=== PATIENT | female | born 1955 | race Caucasian/White ===

== ENCOUNTER → 2017-12-10 10:49 | Outpatient (CLI) | payer OTHER, SELFPAY ==
[2017-12-10 12:01] LABS: Add Manual Diff / Slide Review NO; Basophils Percent Auto 0.3 % (0-2); Hemoglobin 12.6 g/dL (12.0-16.0); Lymphocytes Percent Auto 18.5 % (25-40); Mean Corpuscular Volume 85.2 fL (80-100); Monocytes Percent Auto 6.9 % (3-14); Neutrophils Absolute Auto 4500 /uL (3000-5900); Neutrophils Percent Auto 73.3 % (50-75); Platelet Count 253 X10^3/uL (150-400); Red Blood Cell Count 4.35 X10^6/uL (4.0-5.2); Red Cell Distribution Width 14.1 % (11.6-14.8); White Blood Cell Count 6.1 X10^3/uL (4.5-11.0)
[2017-12-10 12:27] LABS: Alanine Aminotransferase 71 IU/L (9-52); Albumin 4.2 g/dL (3.5-5.0); Albumin Globulin Ratio 1.7 (1.0-2.8); Alkaline Phosphatase 179 U/L (38-126); Aspartate Aminotransferase 29 IU/L (14-36); BUN Creatinine Ratio 21.3 (6-22); Bilirubin Total 0.5 mg/dL (0.2-1.3); Blood Urea Nitrogen 17 mg/dL (7-17); C-Reactive Protein Quant 1.5 mg/dL (<1.0); Calcium 9.5 mg/dL (8.4-10.2); Carbon Dioxide 27 mmol/L (22-32); Chloride 101 mmol/L (98-107); Cholesterol 205 mg/dL (140-199); Estimated Glomerular Filt Rate > 60.0 mL/min (>60); Globulin 2.5 g/dL (1.7-4.1); Glucose 136 mg/dL (80-110); HDL Cholesterol 71 mg/dL (40-60); HEMOLYSIS < 15 (0-50); LDL Cholesterol Calculated 96 mg/dL (<100); Potassium 4.8 mmol/L (3.4-5.1); Sodium 141 mmol/L (137-145); Total Protein 6.7 g/dL (6.3-8.2); Triglycerides 192 mg/dL (35-150)
[2017-12-10 12:28] LABS: Hemoglobin A1C% w Est Avg Glu 6.4 % (4.0-6.0); Lipase < 10 U/L (23-300)
[2017-12-10 12:32] LABS: High Sensitivity CRP - Cardiac 6.7 mg/L (1.0-3.0)
[2017-12-10 12:49] LABS: Thyroid Stimulating Hormone 0.63 uIU/mL (0.47-4.68)
== END ==
PROVIDERS: PCP Anesthesiology Pain Medicine; Visit Provider Anesthesiology Pain Medicine
DX: E13.42 Other specified diabetes mellitus with diabetic polyneuropathy (principal); Z79.891 Long term (current) use of opiate analgesic; I69.811 Memory deficit following other cerebrovascular disease; H53.8 Other visual disturbances; I15.0 Renovascular hypertension; M17.0 Bilateral primary osteoarthritis of knee; F33.1 Major depressive disorder, recurrent, moderate; Z13.220 Encounter for screening for lipoid disorders; Z13.228 Encounter for screening for other metabolic disorders
CPT/HCPCS: 36415; 80053; 80061; 83036; 83690; 84443; 85025; 86140

== ENCOUNTER 2018-08-09 08:51 | Day surgery (SDC) | payer OTHER, SELFPAY ==
[2018-08-02 14:37] VITALS: BMI 42.4
[2018-08-09] VITALS (8 sets, daily range): BP systolic 106–164; BP diastolic 64–83; PULSE 65–75; RESP 12–16; TEMP 36.2–36.4; O2SAT 96–98; BMI 41.0
[2018-08-09] MEDS: LACTATED RINGERS 1,000 ML 100 ML IV (09:44)
[2018-08-09] MEDS: CEFAZOLIN 2 GM/100 ML FROZ.PIGGY IV (11:01)
--- NOTE | 2018-08-09 11:13 | SUR.OPER ---
Lithotomy on padded OR bed, head on pillow, arms secured on padded arm boards at <90 degrees abduction. Legs secured in padded yellow fins stirrups.
[2018-08-09] MEDS: BUPIVACAINE 0.25% W/ EPI VIAL 50 ML INJ (11:22)
--- NOTE | 2018-08-09 12:14 | SUR.PHASEII ---
pt arrived to phase II via stretcher. Pt brought to bedside. Pt sitting up and talking to RN and . Iv site clear. Cuca-pad observed to be c/d/i. pt denies any pain/discomfort or nausea at this time. bed in lowest position and call light given to pt. pt appears comfortable at this time.
[2018-08-09] MEDS: OXYCODONE/ACETAMINOPHEN 5/325 TABLET 1 TAB PO (12:27)
--- NOTE | 2018-08-09 12:43 | SUR.PREOP ---
late entry blood sugar [address] coyle notified prior to start of case, no actions taken
--- NOTE | 2018-08-10 07:56 | PM.PREOP ---
Pre-operative Note Interval Note History & Physical reviewed/Exam performed by Physician: Yes Changes to H&P: No
--- NOTE | 2018-08-10 08:00 | P.HP_ITS ---
History of Present Illness Date Patient Seen: 08/09/18 Time Patient Seen: 10:15 Chief complaint: tvt revision [id number] Narrative: Patient is a 63 year who presents for a TVT revision Patient History Medical History Hypertension (Chronic) Insulin dependent diabetes mellitus (Chronic) Sick sinus syndrome (Chronic) Fibromyalgia syndrome (Chronic) Anxiety and depression (Chronic) Central sleep apnea (Chronic ~2006) Obstructive sleep apnea of adult (Chronic ~2006) Erosion of suburethral sling (Acute) First degree AV block (Acute) Morbid obesity (Acute) Surgical History History of bladder surgery (Acute) S/P laparoscopic supracervical hysterectomy (Acute) History of colonoscopy with polypectomy (Resolved 05/25/14) History of colonoscopy with polypectomy (Resolved 10/08/17) History of esophagogastroduodenoscopy (EGD) (Resolved 05/25/14) History of esophagogastroduodenoscopy (EGD) (Resolved 12/20/15) History of esophagogastroduodenoscopy (EGD) (Resolved 10/08/17) History of hysteroscopy (Resolved 10/10/09) History of lumbosacral spine surgery (Resolved 10/2012) History of neck surgery (Resolved 08/2012) Family & Social History Social History: household members spouse Tobacco & Substance use: Smoking Status Never smoker alcohol intake current Meds Home Medications Medication Instructions Recorded Confirmed Type [VANQUISH] #0 10/10/09 History gabapentin [Neurontin] 300 mg PO HS #0 03/14/17 08/09/18 History hyoscyamine sulfate 0.125 mg PO TIDP PRN #0 03/14/17 08/09/18 History insulin lispro [Humalog KwikPen 20 - 28 unit SQ TIDAC #0 03/14/17 08/09/18 History Insulin] lisinopril 20 mg PO QDAY #0 03/14/17 08/09/18 History metoprolol succinate [Toprol XL] 25 mg PO QDAY #0 03/14/17 08/09/18 History oxybutynin chloride 5 mg PO BID #0 03/14/17 08/09/18 History oxycodone 5 mg PO HSP PRN #0 03/14/17 08/09/18 History aspirin 81 mg PO QDAY #30 tab 03/17/17 08/09/18 Rx insulin detemir (U-100) 100 54 unit SUBCUT BID ml 04/21/18 08/09/18 History unit/mL (3 mL) subcutaneous pen Allergies Allergy/AdvReac Type Severity Reaction Status Date / Time erythromycin base Allergy Severe liver Verified 08/09/18 09:10 problems metformin Allergy Unknown pancreatiti Verified 08/09/18 09:11 s Exam Vital Signs (past 8 hours): Oxygen Delivery Method Room Air Narrative Exam Narrative: HEENT: No thyromegaly, no anterior cervical or supraclavicular lymphadenopathy. Lungs:Clear to auscultation bilaterally, no wheezes. Cardiovascular: Regular rate and rhythm, no murmurs, rubs, or gallops. Abdomen: Well-healed laparoscopy scars. No hepatosplenomegaly. No masses palpable. External genitalia: Atrophic Vagina: Atrophic. Small piece of TVT palpable in the midline approximately 1-1 /2 cm away from the urethral meatus. Cervix: Normal Bimanual exam: No masses or tenderness Rectal: No masses. Assessment & Plan (1) Erosion of suburethral sling: Current visit: No Status: Acute Plan: Assessment/Plan Narrative: Assessment: 63-year-old with erosion of the suburethral sling Plan: Revision of TVT The risks, benefits, and alternatives to the procedure were explained to the patient the risks including bleeding, infection, and injury to the urethra. She understands these risks and agrees to proceed. A full PAR-Q was held and consent form was signed.
--- NOTE | 2018-08-10 08:51 | P.OP_ITS ---
Operative Date/Time/Diagnoses Date of procedure: 08/09/18 Time of procedure: 11:45 Pre-op diagnosis: Erosion of suburethral sling Post-op diagnosis: same Procedure: Procedures Operation Date: 08/09/18 10:15 Actual Procedures Side Surgeon p Tensionless Vaginal Tape Revision Elisabeth Jones MD Indications: Erosion of suburethral sling into the vaginal mucosa Surgeon: Elisabeth Jones Anesthesia Type: General (LMA) Operative Notes Findings: 4 mm x 4 mm piece of suburethral sling visible and palpable in the midline on the anterior vaginal wall Closure Type: primary Specimen(s): none Estimated blood loss (mL): 3 Blood products transfused: none Procedure in detail: After informed consent was obtained, the patient was taken to the operating room where she was placed in the dorsal supine position after adequate LMA general anesthesia was achieved, she was placed in the dorsal lithotomy position, and prepped and draped in the usual sterile fashion. A time- out was performed. A weighted speculum was placed into the vagina. Allis clamps were placed to the lateral edges of the sling in the midline. 5 cc of 0.5 % Marcaine with epinephrine were injected submucosally. The vaginal mucosa surrounding the exposed TVT was excised with a # 15 blade. This was done approximately 3 mm circumferentially around the exposed sling. The mucosa was closed using 4 simple interrupted sutures with 3 0 Vicryl. Hemostasis was achieved. The Allis clamps were removed from the mucosa. The weighted speculum was removed from the vagina. A red rubber catheter was placed into the bladder and the urine was clear at the completion of case. Sponge, lap, and instrument counts were correct x2. The patient tolerated the procedure well , and was taken to PACU in stable condition. Complications: none Post-operative Condition: stable Disposition: PACU Plan for aftercare: Home after recovery
== END 2018-08-09 13:13 | disposition home or self-care (01) ==
PROVIDERS: Family Provider Anesthesiology Pain Medicine; PCP Anesthesiology Pain Medicine; Visit Provider Obstetrics & Gynecology
PROC: 0TSD0ZZ Reposition Urethra, Open Approach (ICD-10-PCS; CPT 57287; principal; 2018-08-09 10:15)
DX: T83.712A Erosion of implanted urethral mesh to surrounding organ or tissue, initial encounter (principal); N93.9 Abnormal uterine and vaginal bleeding, unspecified; I10 Essential (primary) hypertension; E11.9 Type 2 diabetes mellitus without complications; Z79.4 Long term (current) use of insulin; I49.5 Sick sinus syndrome; M79.7 Fibromyalgia; F41.9 Anxiety disorder, unspecified; F33.41 Major depressive disorder, recurrent, in partial remission; G47.31 Primary central sleep apnea; G47.33 Obstructive sleep apnea (adult) (pediatric); E66.01 Morbid (severe) obesity due to excess calories
CPT/HCPCS: 57287; J0690; J2405; J2704; J3010

== ENCOUNTER → 2018-11-12 13:43 | Outpatient (CLI) | payer OTHER, SELFPAY ==
[2018-11-12 15:46] LABS: BUN Creatinine Ratio 26.3 (6-22); Blood Urea Nitrogen 21 mg/dL (7-17); Calcium 9.5 mg/dL (8.4-10.2); Carbon Dioxide 24 mmol/L (22-32); Chloride 102 mmol/L (98-107); Estimated Glomerular Filt Rate > 60.0 mL/min (>60); Glucose 156 mg/dL (80-110); HEMOLYSIS < 15 (0-50); Potassium 4.5 mmol/L (3.4-5.1); Sodium 138 mmol/L (137-145)
== END ==
PROVIDERS: PCP Anesthesiology Pain Medicine; Visit Provider Nurse Practitioner
DX: E11.9 Type 2 diabetes mellitus without complications (principal); Z79.4 Long term (current) use of insulin
CPT/HCPCS: 36415; 80048

== ENCOUNTER → 2018-12-07 12:33 | Outpatient (CLI) | payer OTHER, SELFPAY ==
[2018-12-07 13:41] LABS: Add Manual Diff / Slide Review NO; Basophils Absolute Auto 0 /uL (0-100); Basophils Percent Auto 0.6 % (0-2); Eosinophils Absolute Auto 100 /uL (0-450); Eosinophils Percent Auto 2.1 % (2-4); Hemoglobin 13.7 g/dL (12.0-16.0); Lymphocytes Absolute Auto 1300 /uL (1100-4500); Lymphocytes Percent Auto 20.6 % (25-40); Mean Corpuscular HGB Conc 34.2 % (30-36); Mean Corpuscular Hemoglobin 29.4 PG (26-34); Mean Corpuscular Volume 86.1 fL (80-100); Monocytes Absolute Auto 500 /uL (0-900); Monocytes Percent Auto 7.5 % (3-14); Neutrophils Absolute Auto 4500 /uL (1500-7000); Neutrophils Percent Auto 69.2 % (50-75); Platelet Count 280 X10^3/uL (150-400); Red Blood Cell Count 4.65 X10^6/uL (4.0-5.2); Red Cell Distribution Width 13.9 % (11.6-14.8); White Blood Cell Count 6.4 X10^3/uL (4.5-11.0)
[2018-12-07 14:47] LABS: Alanine Aminotransferase 55 IU/L (9-52); Albumin 4.2 g/dL (3.5-5.0); Albumin Globulin Ratio 1.6 (1.0-2.8); Alkaline Phosphatase 197 U/L (38-126); Aspartate Aminotransferase 41 IU/L (14-36); BUN Creatinine Ratio 27.8 (6-22); Bilirubin Total 0.5 mg/dL (0.2-1.3); Blood Urea Nitrogen 25 mg/dL (7-17); Calcium 9.3 mg/dL (8.4-10.2); Carbon Dioxide 23 mmol/L (22-32); Chloride 103 mmol/L (98-107); Estimated Glomerular Filt Rate > 60.0 mL/min (>60); Globulin 2.7 g/dL (1.7-4.1); Glucose 160 mg/dL (80-110); HEMOLYSIS 15 (0-50); Potassium 4.4 mmol/L (3.4-5.1); Sodium 136 mmol/L (137-145); Total Protein 6.9 g/dL (6.3-8.2)
== END ==
PROVIDERS: PCP Anesthesiology Pain Medicine; Visit Provider Anesthesiology Pain Medicine
DX: E13.42 Other specified diabetes mellitus with diabetic polyneuropathy (principal); M96.1 Postlaminectomy syndrome, not elsewhere classified; I69.811 Memory deficit following other cerebrovascular disease; I15.0 Renovascular hypertension; Z13.21 Encounter for screening for nutritional disorder; Z13.220 Encounter for screening for lipoid disorders; F33.1 Major depressive disorder, recurrent, moderate
CPT/HCPCS: 36415; 80053; 85025

== ENCOUNTER → 2018-12-17 14:23 | Outpatient (CLI) | payer MEDICARE, OTHER, SELFPAY ==
--- NOTE | 2018-12-17 | DI.RAD.S_ITS ---
PROCEDURE: XR CHEST 2V INDICATIONS: COUGH/BRONCHITIS TECHNIQUE: 2 views of the chest were acquired. COMPARISON: [facility], , CHEST 1 VIEW, 03/15/2017, 6:02. FINDINGS: Surgical changes and devices: Cervical spine fixation hardware Lungs and pleura: Lungs are clear. No pleural effusions or pneumothorax. Mediastinum: Mediastinal contours are normal. Heart size is normal. Bones and chest wall: No suspicious bony abnormalities. Soft tissues appear unremarkable. IMPRESSION: No acute disease Dictated by: Prasanna Serna M.D. on 12/17/2018 at 14:55 Approved by: Prasanna Serna M.D. on 12/17/2018 at 14:55
== END ==
PROVIDERS: PCP Anesthesiology Pain Medicine; Visit Provider Anesthesiology Pain Medicine
DX: R05 Cough (principal); J40 Bronchitis, not specified as acute or chronic
CPT/HCPCS: 71046

== ENCOUNTER 2019-02-21 14:46 | Emergency (ER) | payer MEDICARE, OTHER, SELFPAY ==
[2019-02-21 14:53] VITALS: BP 161/76; PULSE 78; RESP 18; TEMP 36.7; O2SAT 100
--- NOTE | 2019-02-21 15:10 | DI.US.S_ITS ---
PROCEDURE: US ABDOMEN LIMITED INDICATIONS: UPPER ABDOMEN PAIN TECHNIQUE: Real-time focused scanning was performed of the abdomen, with image documentation. COMPARISON: None. FINDINGS: Limited study at clinician request. The liver is mildly enlarged at 18.9 cm craniocaudad. No intrahepatic mass or biliary distention is found. The gallbladder wall measures up to 3.1 mm, thickened. A nonvascular mass like structure is seen at the gallbladder fundus, measuring 13 x 11 x 6 mm. Bile duct measures 4.7 mm at the zak hepatis. This is normal. No gallstones seen. Limited visualization of the pancreas appears normal. IMPRESSION: Limited study at clinician request. Possible mass lesion gallbladder fundus measuring up to 13 x 11 x 6 mm with gallbladder wall thickening measuring up to 3.[address] scanning is recommended if cholecystectomy is not anticipated. Dictated by: Kenny Gordon M.D. on 02/21/2019 at 16:20 Approved by: Kenny Gordon M.D. on 02/21/2019 at 16:23
--- NOTE | 2019-02-21 15:10 | DI.RAD.S_ITS ---
PROCEDURE: XR CHEST 1V INDICATIONS: SOB, leg swelling TECHNIQUE: One view of the chest was acquired. COMPARISON: [facility], , XR CHEST 2V, 12/17/2018, 14:30. [facility], , CHEST 1 VIEW, 03/15/2017, 6:02. FINDINGS: Surgical changes and devices: None. Lungs and pleura: Lungs are clear. No pleural effusions or pneumothorax. Mediastinum: Mediastinal contours appear normal. Heart size is normal. Bones and chest wall: No suspicious bony lesions. Overlying soft tissues appear unremarkable. IMPRESSION: Normal for age, source of current shortness of breath symptoms is not seen. Dictated by: Kenny Gordon M.D. on 02/21/2019 at 16:19 Approved by: Kenny Gordon M.D. on 02/21/2019 at 16:20
[2019-02-21 15:31] LABS: Add Manual Diff / Slide Review NO; Basophils Absolute Auto 100 /uL (0-100); Basophils Percent Auto 0.7 % (0-2); Eosinophils Absolute Auto 100 /uL (0-450); Eosinophils Percent Auto 0.7 % (2-4); Hematocrit 40.6 % (36-46); Hemoglobin 13.4 g/dL (12.0-16.0); Lymphocytes Absolute Auto 1100 /uL (1100-4500); Lymphocytes Percent Auto 15.6 % (25-40); Mean Corpuscular Hemoglobin 28.1 PG (26-34); Mean Corpuscular Volume 85.2 fL (80-100); Monocytes Absolute Auto 400 /uL (0-900); Neutrophils Absolute Auto 5600 /uL (1500-7000); Platelet Count 286 X10^3/uL (150-400); Red Blood Cell Count 4.77 X10^6/uL (4.0-5.2); Red Cell Distribution Width 13.9 % (11.6-14.8); White Blood Cell Count 7.3 X10^3/uL (4.5-11.0)
[2019-02-21 15:41] LABS: D Dimer 204 ng/mL (<230)
[2019-02-21 15:43] LABS: Amylase 48 U/L (30-110); Creatine Kinase 70 U/L (30-135)
[2019-02-21 15:44] LABS: Alanine Aminotransferase 58 IU/L (9-52); Albumin 4.4 g/dL (3.5-5.0); Albumin Globulin Ratio 1.6 (1.0-2.8); Alkaline Phosphatase 166 U/L (38-126); Aspartate Aminotransferase 28 IU/L (14-36); BUN Creatinine Ratio 23.8 (6-22); Bilirubin Total 0.5 mg/dL (0.2-1.3); Blood Urea Nitrogen 19 mg/dL (7-17); Carbon Dioxide 25 mmol/L (22-32); Chloride 103 mmol/L (98-107); Estimated Glomerular Filt Rate > 60.0 mL/min (>60); Globulin 2.8 g/dL (1.7-4.1); Glucose 230 mg/dL (80-110); HEMOLYSIS 53 (0-50); Lipase < 10 U/L (23-300); Potassium 4.2 mmol/L (3.4-5.1); Sodium 141 mmol/L (137-145); Total Protein 7.2 g/dL (6.3-8.2)
[2019-02-21] MEDS: ONDANSETRON 4 MG/2 ML INJ IV ×2 (15:49→17:13)
[2019-02-21] MEDS: PANTOPRAZOLE 40 MG VIAL IV (15:49)
[2019-02-21] MEDS: SODIUM CHLORIDE 0.9% 1,000 ML 150 ML IV (15:49)
[2019-02-21 15:54] LABS: B Type Natriuretic Peptide < 100 (<100); Troponin I < 0.012 ng/mL (0.01-0.034)
[2019-02-21 15:58] VITALS: BP 138/70; PULSE 71; RESP 17; O2SAT 98
[2019-02-21 16:39] VITALS: BP 141/75; PULSE 64; RESP 18; O2SAT 100
[2019-02-21 17:00] VITALS: BP 142/71; PULSE 63; RESP 11; O2SAT 97
--- NOTE | 2019-02-21 17:46 | DI.CT.S_ITS ---
PROCEDURE: CT ABDOMEN PELVIS W CON INDICATIONS: gallbladder mass, additional study, had US test done TECHNIQUE: After the administration of oral and intravenous contrast, 5 mm thick sections acquired from the diaphragms to the symphysis. 5 mm thick coronal and sagittal reformats were performed. For radiation dose reduction, the following was used: automated exposure control, adjustment of mA and/or kV according to patient size. COMPARISON: [facility], US, US ABDOMEN LIMITED, 02/21/2019, 15:32. [facility], CT, ABDOMEN/PELVIS WITH CONTRAST, 07/31/2014, 10:58. FINDINGS: Image quality: Excellent. ABDOMEN: Lung bases: Lung bases are clear. Heart size is normal. Solid organs: Liver is enlarged with steatosis. The masslike appearance at the gallbladder fundus is not as well characterized on current CT exam. Is identified best on series 4 image 35. Biliary system is non-dilated. Pancreas is atrophic Spleen is normal in size and enhancement. No adrenal nodules. Kidneys are normal in size and enhancement, without hydronephrosis. Peritoneum and bowel: Stomach, small bowel, and colon loops are normal in caliber and wall thickness. No free fluid or air. There is prominent thickening of the pylorus extending to the proximal duodenal C-loop. Nodes and vessels: No retroperitoneal or mesenteric adenopathy. Aorta and inferior vena cava are normal in caliber. Miscellaneous: No ventral hernias. PELVIS: Genitourinary: Bladder wall thickness is normal. Miscellaneous: No inguinal hernias or adenopathy. Bones: No suspicious bony lesions. No vertebral body compression fractures. L4-5 posterior fixation is present. IMPRESSION: 1. Limited evaluation of abnormality identified within the gallbladder on ultrasound of 02/21/19. This could represent a small focus of adherent sludge. However, other etiologies including neoplasm cannot be excluded. Focus is better visualized on ultrasound. As clinically indicated, surgical consult on an outpatient basis and/or short interval imaging followup with ultrasound to document stability is recommended. Dictated by: Lissa Pereira M.D. on 02/21/2019 at 19:05 Approved by: Lissa Pereira M.D. on 02/21/2019 at 19:09
[2019-02-21 19:07] VITALS: BP 150/68; PULSE 74; RESP 11; O2SAT 100
--- NOTE | 2019-02-21 19:29 | ED.ABDPAIN ---
HPI - Abdominal Pain <CHUCK George - Last Filed: 02/22/19 01:13> General Chief Complaint: Abdominal Pain Stated Complaint: ABD PAIN/NAUSEA Time Seen by Provider: 02/21/19 14:55 Source: patient and family Mode of arrival: ambulatory Limitations: no limitations History of Present Illness HPI narrative: This is a pleasant 64-year-old female, nonsmoker, presents with her spouse to ED with epigastric pain radiating to her back. She had this pain intermittently since December. She reports eating aggravates her pain especially at night and states it feels almost like heartburn. Recently she noticed decreased appetite also had several episodes of vomiting. She also noticed gold/like color stool, and feeling very gassy. She reports associated symptoms such as chills, feeling clammy, some difficulty breathing. She denies fever, diarrhea, constipation. She also reports that recent travel to [place] and back to home. She reports some swelling to lower extremities and has history of heart failure along [place]. She was seen by her primary care physician Joie Eldridge and has imaging test ordered in 2 days, however, she could not wait and came in to ED for evaluation. Related Data Home Medications Medication Instructions Recorded Confirmed insulin lispro [Humalog KwikPen 20 - 28 unit SQ TIDAC #0 03/14/17 11/03/18 Insulin] oxybutynin chloride 5 mg PO BID #0 03/14/17 02/21/19 insulin detemir (U-100) 100 54 unit SUBCUT BID ml 04/21/18 11/03/18 unit/mL (3 mL) subcutaneous pen Respironics Dreamstation BIPAP #1 ea 11/03/18 02/21/19 calcium lactate 100 mg calcium 100 mg PO BID tab 11/03/18 11/03/18 tablet amitriptyline 10 mg PO DAILY 02/21/19 02/21/19 empagliflozin [Jardiance] 10 mg PO DAILY 02/21/19 02/21/19 escitalopram oxalate 20 ng PO DAILY 02/21/19 02/21/19 estradiol 1 applic VAGINAL DIRECTED 02/21/19 02/21/19 gabapentin 02/21/19 hydrocodone-acetaminophen 1 tab PO QID 02/21/19 02/21/19 insulin glargine U-300 conc 02/21/19 [Toujeo Max U-300 SoloStar] lisinopril 40 mg PO DAILY 02/21/19 02/21/19 metoprolol tartrate 25 mg PO BID 02/21/19 02/21/19 oxycodone [OxyContin] 10 mg PO TID 02/21/19 02/21/19 tizanidine 4 mg PO TID 02/21/19 02/21/19 Previous Rx's Medication Instructions Recorded ondansetron 4 mg PO Q6-8H PRN #7 tab 02/21/19 Allergies Allergy/AdvReac Type Severity Reaction Status Date / Time erythromycin base Allergy Severe liver Verified 11/03/18 13:21 problems metformin Allergy Unknown pancreatiti Verified 11/03/18 13:21 s Review of Systems <CHUCK George - Last Filed: 02/22/19 01:13> Review of Systems General: Denies fever, chills, fatigue, malaise, sweats. HEENT: Denies sinus pain, ear pain, sore throat, difficulty swallowing, dizziness. Respiratory: See HPI Cardiovascular: Reports leg edema. Denies chest pain, palpitations, orthopnea. Gastrointestinal: See HPI : Denies dysuria, frequency, incontinence, hematuria, urinary retention. Musculoskeletal: Denies weakness, joint pain or bony pain. Skin: Denies rash, skin lesions, or other. Neurologic: Denies weakness, headache, numbness, change in speech, confusion, seizures, incoordination. Psychiatric: No concerning psychosocial issues. 12-point review of systems is negative except for those stated above. PFSH <CHUCK George - Last Filed: 02/22/19 01:13> Medical History Hypertension (Chronic) Insulin dependent diabetes mellitus (Chronic) Sick sinus syndrome (Chronic) Fibromyalgia syndrome (Chronic) Anxiety and depression (Chronic) Central sleep apnea (Chronic ~2006) Obstructive sleep apnea of adult (Chronic ~2006) Erosion of suburethral sling (Acute) First degree AV block (Acute) Morbid obesity (Acute) Surgical History History of bladder surgery (Acute) S/P laparoscopic supracervical hysterectomy (Acute) History of colonoscopy with polypectomy (Resolved 05/25/14) History of colonoscopy with polypectomy (Resolved 10/08/17) History of esophagogastroduodenoscopy (EGD) (Resolved 05/25/14) History of esophagogastroduodenoscopy (EGD) (Resolved 12/20/15) History of esophagogastroduodenoscopy (EGD) (Resolved 10/08/17) History of hysteroscopy (Resolved 10/10/09) History of lumbosacral spine surgery (Resolved 10/2012) History of neck surgery (Resolved 08/2012) Family History (Updated 06/14/18 @ 12:18 by Thania Clinton) Father TIA (transient ischemic attack) Grandfather Blood clot in vein Grandmother Stroke Mother Chronic back pain Grandfather Alzheimer's disease Grandmother MVA (motor vehicle accident) Brother Chronic back pain Sister No problems noted. Social History (Updated 11/07/18 @ 13:29 by CHUCK Churchill) marital status: details: to Chris, lives in [place] household members: spouse lives independently: Yes caregiver/support person: No housing: house Smoking Status: Never smoker alcohol intake: current Family History Father TIA (transient ischemic attack) Grandfather Blood clot in vein Grandmother Stroke Mother Chronic back pain Grandfather Alzheimer's disease Grandmother MVA (motor vehicle accident) Brother Chronic back pain Sister No problems noted. Social History marital status: details: junaid Perez, lives in [place] household members: spouse lives independently: Yes caregiver/support person: No housing: house Smoking Status: Never smoker alcohol intake: current Exam <CHUCK George - Last Filed: 02/22/19 01:13> Narrative Exam Narrative: GEN: Alert, oriented x 3, well appearing and nourished, and in no acute distress. Head: Normal cephalic, atraumatic. No scalp or temporal tenderness, palpable mass or rash. EYES: Pupils are equal, round, and reactive to light and accommodation. Extraocular muscles are intact bilaterally. There is no subconjunctival hemorrhage, exudate and sclera non-icteric. ENT: Nose without bleeding, purulent discharge. Mucous membrane moist, no mucosal lesion. Throat without erythema, tonsillar hypertrophy or exudate. Uvula in midline, airway patent. Neck: Trachea in midline. No JVD, non-tender without lymphadenopathy. No masses or thyroid megaly. Supple, non-tender and no meningeal signs. CARDIAC: Normal regular rate and rhythm without murmurs, gallops, or rubs. No chest wall tenderness. No peripheral edema, cyanosis or pallor. Capillary refill is less than 2 seconds. RESPIRATORY: Lungs are cleat to auscultate bilaterally. No cough, wheezes, rales, or rhonchi. No stridor, respiratory distress, increase work of breathing, or accessary muscle used. ABD: Abdomen soft, non-distended. Mild discomfort in mid upper abdomen to palpate. No guarding or rebound tenderness to palpate. Bowel sounds are normal in all 4 quadrants. There is no palpable masses or organomegaly. EXT: Full painless ROM of all extremities with no loss of sensation, strength, effusion or edema. SKIN: Warm, dry, normal color for patient. No erythema, lesions or rash over visible areas. BACK: Nontender without deformity or crepitance. No flank tenderness. NEUROLOGICAL: Alert and oriented to place, time and person. Sensation and motor function intact bilaterally. No facial droops, dysphasia. PSYCHIATRIC: Good judgement and reason, without hallucinations, abnormal affect or abnormal behaviors during the examination. Patient is not suicidal. Initial Vital Signs Initial Vital Signs: Vital Signs Temperature 98.0 F 02/21/19 14:53 Pulse Rate 78 02/21/19 14:53 Respiratory Rate 18 02/21/19 14:53 Blood Pressure 161/76 H 02/21/19 14:53 Pulse Oximetry 100 02/21/19 14:53 <Emily Gloria MD - Last Filed: 02/22/19 07:14> Initial Vital Signs Initial Vital Signs: Vital Signs Temperature 98.0 F 02/21/19 14:53 Pulse Rate 78 02/21/19 14:53 Respiratory Rate 18 02/21/19 14:53 Blood Pressure 161/76 H 02/21/19 14:53 Pulse Oximetry 100 02/21/19 14:53 Course <CHUCK George - Last Filed: 02/22/19 01:13> Orders Ordered: Discontinued Medications Sodium Chloride (Normal Saline 0.9%) 1,000 mls @ 150 mls/hr IV CONT STAN Last Infusion: 02/21/19 19:38 Dose: 0 mls/hr Admin: 02/21/19 15:49 Dose: 150 mls/hr Ondansetron HCl (Zofran) 4 mg IV NOW ONE Stop: 02/21/19 15:10 Last Admin: 02/21/19 15:49 Dose: 4 mg Ondansetron HCl (Zofran) 4 mg IV NOW ONE Stop: 02/21/19 17:11 Last Admin: 02/21/19 17:13 Dose: 4 mg Pantoprazole Sodium (Protonix) 40 mg IV NOW ONE Stop: 02/21/19 15:10 Last Admin: 02/21/19 15:49 Dose: 40 mg Vital Signs - 8 hr 02/21/19 17:00 02/21/19 19:07 02/21/19 19:30 Temperature 97.8 F Pulse Rate 63 74 80 Respiratory Rate 11 L 11 L 24 Blood Pressure [Right Arm] 142/71 H 150/68 H 148/71 H Pulse Oximetry 97 100 99 <Emily Gloria MD - Last Filed: 02/22/19 07:14> Orders Ordered: Discontinued Medications Sodium Chloride (Normal Saline 0.9%) 1,000 mls @ 150 mls/hr IV CONT STAN Last Infusion: 02/21/19 19:38 Dose: 0 mls/hr Admin: 02/21/19 15:49 Dose: 150 mls/hr Ondansetron HCl (Zofran) 4 mg IV NOW ONE Stop: 02/21/19 15:10 Last Admin: 02/21/19 15:49 Dose: 4 mg Ondansetron HCl (Zofran) 4 mg IV NOW ONE Stop: 02/21/19 17:11 Last Admin: 02/21/19 17:13 Dose: 4 mg Pantoprazole Sodium (Protonix) 40 mg IV NOW ONE Stop: 02/21/19 15:10 Last Admin: 02/21/19 15:49 Dose: 40 mg Vital Signs - 8 hr 02/21/19 17:00 02/21/19 19:07 02/21/19 19:30 Temperature 97.8 F Pulse Rate 63 74 80 Respiratory Rate 11 L 11 L 24 Blood Pressure [Right Arm] 142/71 H 150/68 H 148/71 H Pulse Oximetry 97 100 99 MDM - Abdominal Pain <Ollie Marisa CHUCK - Last Filed: 02/22/19 01:13> Differential Diagnosis Differential diagnosis: Likely abdominal pain, pancreatitis, small bowel obstruction and other (cholecystitis) Medical Records Attestation: I reviewed the patient's medical records. Lab Data Attestation: I reviewed the patient's lab results. Result diagrams: 02/21/19 15:23 02/21/19 15:23 Lab Results 02/21/19 02/21/19 02/21/19 Range/Units 15:23 15:23 15:23 WBC 7.3 (4.5-11.0) X10^3/uL RBC 4.77 (4.0-5.2) X10^6/uL Hgb 13.4 (12.0-16.0) g/dL Hct 40.6 (36-46) % MCV 85.2 (80-100) fL MCH 28.1 (26-34) PG MCHC 33.0 (30-36) % RDW 13.9 (11.6-14.8) % Plt Count 286 (150-400) X10^3/uL Neut % (Auto) 77.0 H (50-75) % Lymph % (Auto) 15.6 L (25-40) % Beadle % (Auto) 6.0 (3-14) % Eos % (Auto) 0.7 L (2-4) % Baso % (Auto) 0.7 (0-2) % Neut # (Auto) 5600 (9432-8607) /uL Lymph # (Auto) 1100 (4996-0064) /uL Beadle # (Auto) 400 (0-900) /uL Eos # (Auto) 100 (0-450) /uL Baso # (Auto) 100 (0-100) /uL D-Dimer 204 (<230) ng/mL Sodium 141 (137-145) mmol/L Potassium 4.2 (3.4-5.1) mmol/L Chloride 103 (98-107) mmol/L Carbon Dioxide 25 (22-32) mmol/L BUN 19 H (7-17) mg/dL Creatinine 0.80 (0.52-1.04) mg/dL Estimated GFR > 60.0 (>60) mL/min BUN/Creatinine Ratio 23.8 H (6-22) Glucose 230 H (80-110) mg/dL Calcium 10.0 (8.4-10.2) mg/dL Total Bilirubin 0.5 (0.2-1.3) mg/dL AST 28 (14-36) IU/L ALT 58 H (9-52) IU/L Alkaline Phosphatase 166 H (38-126) U/L Total Creatine Kinase (30-135) U/L CK-MB (CK-2) CK-MB (CK-2) Rel Index Troponin I (0.01-0.034) ng/mL B-Natriuretic Peptide (<100) Total Protein 7.2 (6.3-8.2) g/dL Albumin 4.4 (3.5-5.0) g/dL Globulin 2.8 (1.7-4.1) g/dL Albumin/Globulin Ratio 1.6 (1.0-2.8) Amylase (30-110) U/L Lipase < 10 L (23-300) U/L 02/21/19 02/21/19 Range/Units 15:23 15:23 WBC (4.5-11.0) X10^3/uL RBC (4.0-5.2) X10^6/uL Hgb (12.0-16.0) g/dL Hct (36-46) % MCV (80-100) fL MCH (26-34) PG MCHC (30-36) % RDW (11.6-14.8) % Plt Count (150-400) X10^3/uL Neut % (Auto) (50-75) % Lymph % (Auto) (25-40) % Beadle % (Auto) (3-14) % Eos % (Auto) (2-4) % Baso % (Auto) (0-2) % Neut # (Auto) (1332-6486) /uL Lymph # (Auto) (7253-2818) /uL Beadle # (Auto) (0-900) /uL Eos # (Auto) (0-450) /uL Baso # (Auto) (0-100) /uL D-Dimer (<230) ng/mL Sodium (137-145) mmol/L Potassium (3.4-5.1) mmol/L Chloride (98-107) mmol/L Carbon Dioxide (22-32) mmol/L BUN (7-17) mg/dL Creatinine (0.52-1.04) mg/dL Estimated GFR (>60) mL/min BUN/Creatinine Ratio (6-22) Glucose (80-110) mg/dL Calcium (8.4-10.2) mg/dL Total Bilirubin (0.2-1.3) mg/dL AST (14-36) IU/L ALT (9-52) IU/L Alkaline Phosphatase (38-126) U/L Total Creatine Kinase 70 (30-135) U/L CK-MB (CK-2) TNP CK-MB (CK-2) Rel Index TNP Troponin I < 0.012 (0.01-0.034) ng/mL B-Natriuretic Peptide < 100 (<100) Total Protein (6.3-8.2) g/dL Albumin (3.5-5.0) g/dL Globulin (1.7-4.1) g/dL Albumin/Globulin Ratio (1.0-2.8) Amylase 48 (30-110) U/L Lipase (23-300) U/L Point of care testing: Urine Dip Bedside Urine Glucose 1000 mg/dl Bedside Urine Bilirubin - Negative Bedside Urine Ketone - Negative Urine Specific Rainier 1.015 Bedside Urine Occult Blood - Negative Bedside Urine pH 5.5 Bedside Urine Protein - Negative Bedside Urine Urobilinogen - Negative Bedside Urine Nitrite - Negative Bedside Urine Leukocytes - Negative Esterase Imaging Data US - abdomen: Radiologist's impression: Chart Viewer Diagnostics DATE TYPE STATUS AUTHOR Hx 02/21/19 17:46 Lissa Pereira 02/21/19 15:10 Kenny Gordon 02/21/19 15:10 Kenny Gordon 12/17/18 00:00 Prasanna Serna 03/14/17 17:36 Emily Payan 64, F0 1955 REG ER, ED.LOC - Main ED: R08 Abdominal Pain Search Chart No Data to Display NF - Not included in interaction checking liver problems pancreatitis ONSET ~2006 ~2006 Today 19:07 Emily Payan 64 F [address] [address] Ultrasound Report Signed Patient: Emily Payan LMR#: [id number] : 4Acct:[id number] Age/Sex: 64 / FDate of Service: 02/21/19 Loc: ED Accession Number: [id number] Procedure: US abdomen limited Ordering Provider: Ollie Cunningham PROCEDURE: US ABDOMEN LIMITED INDICATIONS: UPPER ABDOMEN PAIN TECHNIQUE: Real-time focused scanning was performed of the abdomen, with image documentation. COMPARISON: None. FINDINGS: Limited study at clinician request. The liver is mildly enlarged at 18.9 cm craniocaudad. No intrahepatic mass or biliary distention is found. The gallbladder wall measures up to 3.1 mm, thickened. A nonvascular mass like structure is seen at the gallbladder fundus, measuring 13 x 11 x 6 mm. Bile duct measures 4.7 mm at the zak hepatis. This is normal. No gallstones seen. Limited visualization of the pancreas appears normal. IMPRESSION: Limited study at clinician request. Possible mass lesion gallbladder fundus measuring up to 13 x 11 x 6 mm with gallbladder wall thickening measuring up to 3.[address] scanning is recommended if cholecystectomy is not anticipated. Dictated by: Kenny Gordon M.D. on 02/21/2019 at 16:20 Approved by: Kenny Gordon M.D. on 02/21/2019 at 16:23 ECG Data Attestation: I personally reviewed and interpreted this ECG as follows: Prior ECG tracings: available for review Interpretation: Sinus Jesus rate at 59, Normal [place], Fist degree AV block which is new without ST elevation or depression MDM Narrative Medical decision making narrative: This is a pleasant 64-year-old female presents ED with epigastric pain radiating to back with nausea and vomiting. She endorses chills, feeling clammy and short of breath. She reports pain has been going on and off for about 3 months. However, she now has nausea and vomiting, decreased appetite. She has imaging test ordered by PCP in 2 days was unable to wait and came in to ED for an evaluation. EKG was obtained sinus Jesus rated 59. D-dimer was obtained due to patient's recent travel and short of breath which showed negative. BNP was also drawn for short of breath, self-reported bilateral leg swelling with history of heart failure, the result was negative. Cardiac enzymes were drawn with negative finding. Her liver function test was mildly elevated but improved since November 2018. Amylase and lipase were within normal. Abdominal ultrasound shows possible mass lesion in gallbladder fundus with gallbladder or thickening. The findings were discussed with Dr. Kowalski and consulted. As requested per Dr. Kowalski, double contrasted CT abdomen/pelvis was obtained. According to CT, of small focus and adherent sludge within the gallbladder with differential diagnosis including neoplasm. requested patient to follow up with clinic tomorrow by calling the clinic. Patient was discharged with Zofran for as needed home use. The patient reports pain and nausea had improved after IV Zofran and pantoprazole and IVF NS. The patient declined further pain medication. The patient reports she has narcotic pain medications at home and she was advised to use it as needed. Patient verbalized the understanding and all questions were answered. The patient and spouse agreed with treatment plan to follow up with [place] surgery tomorrow. <Emily Gloria MD - Last Filed: 02/22/19 07:14> Lab Data Lab Results 02/21/19 02/21/19 02/21/19 Range/Units 15:23 15:23 15:23 WBC 7.3 (4.5-11.0) X10^3/uL RBC 4.77 (4.0-5.2) X10^6/uL Hgb 13.4 (12.0-16.0) g/dL Hct 40.6 (36-46) % MCV 85.2 (80-100) fL MCH 28.1 (26-34) PG MCHC 33.0 (30-36) % RDW 13.9 (11.6-14.8) % Plt Count 286 (150-400) X10^3/uL Neut % (Auto) 77.0 H (50-75) % Lymph % (Auto) 15.6 L (25-40) % Beadle % (Auto) 6.0 (3-14) % Eos % (Auto) 0.7 L (2-4) % Baso % (Auto) 0.7 (0-2) % Neut # (Auto) 5600 (0374-4217) /uL Lymph # (Auto) 1100 (2207-1740) /uL Beadle # (Auto) 400 (0-900) /uL Eos # (Auto) 100 (0-450) /uL Baso # (Auto) 100 (0-100) /uL D-Dimer 204 (<230) ng/mL Sodium 141 (137-145) mmol/L Potassium 4.2 (3.4-5.1) mmol/L Chloride 103 (98-107) mmol/L Carbon Dioxide 25 (22-32) mmol/L BUN 19 H (7-17) mg/dL Creatinine 0.80 (0.52-1.04) mg/dL Estimated GFR > 60.0 (>60) mL/min BUN/Creatinine Ratio 23.8 H (6-22) Glucose 230 H (80-110) mg/dL Calcium 10.0 (8.4-10.2) mg/dL Total Bilirubin 0.5 (0.2-1.3) mg/dL AST 28 (14-36) IU/L ALT 58 H (9-52) IU/L Alkaline Phosphatase 166 H (38-126) U/L Total Creatine Kinase (30-135) U/L CK-MB (CK-2) CK-MB (CK-2) Rel Index Troponin I (0.01-0.034) ng/mL B-Natriuretic Peptide (<100) Total Protein 7.2 (6.3-8.2) g/dL Albumin 4.4 (3.5-5.0) g/dL Globulin 2.8 (1.7-4.1) g/dL Albumin/Globulin Ratio 1.6 (1.0-2.8) Amylase (30-110) U/L Lipase < 10 L (23-300) U/L 02/21/19 02/21/19 Range/Units 15:23 15:23 WBC (4.5-11.0) X10^3/uL RBC (4.0-5.2) X10^6/uL Hgb (12.0-16.0) g/dL Hct (36-46) % MCV (80-100) fL MCH (26-34) PG MCHC (30-36) % RDW (11.6-14.8) % Plt Count (150-400) X10^3/uL Neut % (Auto) (50-75) % Lymph % (Auto) (25-40) % Beadle % (Auto) (3-14) % Eos % (Auto) (2-4) % Baso % (Auto) (0-2) % Neut # (Auto) (1689-1667) /uL Lymph # (Auto) (1630-0161) /uL Beadle # (Auto) (0-900) /uL Eos # (Auto) (0-450) /uL Baso # (Auto) (0-100) /uL D-Dimer (<230) ng/mL Sodium (137-145) mmol/L Potassium (3.4-5.1) mmol/L Chloride (98-107) mmol/L Carbon Dioxide (22-32) mmol/L BUN (7-17) mg/dL Creatinine (0.52-1.04) mg/dL Estimated GFR (>60) mL/min BUN/Creatinine Ratio (6-22) Glucose (80-110) mg/dL Calcium (8.4-10.2) mg/dL Total Bilirubin (0.2-1.3) mg/dL AST (14-36) IU/L ALT (9-52) IU/L Alkaline Phosphatase (38-126) U/L Total Creatine Kinase 70 (30-135) U/L CK-MB (CK-2) TNP CK-MB (CK-2) Rel Index TNP Troponin I < 0.012 (0.01-0.034) ng/mL B-Natriuretic Peptide < 100 (<100) Total Protein (6.3-8.2) g/dL Albumin (3.5-5.0) g/dL Globulin (1.7-4.1) g/dL Albumin/Globulin Ratio (1.0-2.8) Amylase 48 (30-110) U/L Lipase (23-300) U/L Point of care testing: Urine Dip Bedside Urine Glucose 1000 mg/dl Bedside Urine Bilirubin - Negative Bedside Urine Ketone - Negative Urine Specific Rainier 1.015 Bedside Urine Occult Blood - Negative Bedside Urine pH 5.5 Bedside Urine Protein - Negative Bedside Urine Urobilinogen - Negative Bedside Urine Nitrite - Negative Bedside Urine Leukocytes - Negative Esterase Discharge Plan Departure Patient Disposition: Home Clinical Impression: Cholecystitis, Gallbladder mass Nausea & vomiting Qualifiers: Vomiting type: unspecified Vomiting Intractability: non-intractable Qualified Code(s): R11.2 - Nausea with vomiting, unspecified Discharge Date/Time: 02/21/19 19:48 Interventions: ED Discharge Assessment Last Done: 02/21/19 19:50 Instructions: DI for Abdominal Pain-Adult, Nausea and Vomiting-Adult, DI for Cholecystitis Activity Restrictions/Additional Instructions: You have been diagnosed with [ mid upper abdominal pain, possible cholecystitis, mass in gallbladder per ultrasound and CT scan. You're EKG, chest x-ray, BNP, D-dimer cardiac enzyme, chemistry looks unremarkable. You're liver function test his mildly elevated but looks better than previous times. 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 I spoke with over the phone dear findings. He instructed to follow up with surgery Clinic tomorrow by calling the office]. What to do: *Take your medications as directed. Please take her pain medication that you have at home as needed for pain. The Zofran for anti nausea prescription has been transmitted to [facility] for you to machine operator picker. *Follow up with [facility] tomorrow and please call the clinic. Please follow up with your primary care provider in 2-3 days, call for an appointment. Let them know you were seen in the ED and that we asked you to be seen in follow up. *Return to ED if you have any new, worsening, or concerning symptoms, such as [worsening pain, fever, chills, breathing difficulty, chest pain, unable to tolerate fluids, any acute concerns]. Prescriptions: New ondansetron 4 mg tablet,disintegrating 4 mg PO Q6-8H PRN (Reason: nausea and vomiting) Qty: 7 RF: 0 No Action oxybutynin chloride 5 MG tablet 5 mg PO BID Qty: 0 RF: 0 insulin lispro [Humalog KwikPen Insulin] 100 UNIT/1 ML insulin pen 20 - 28 unit SQ TIDAC Qty: 0 RF: 0 gabapentin 600 mg tablet RF: 0 tizanidine 4 mg tablet 4 mg PO TID RF: 0 amitriptyline 10 mg tablet 10 mg PO DAILY RF: 0 hydrocodone-acetaminophen 7.5-325 mg tablet 1 tab PO QID RF: 0 estradiol 0.01 % (0.1 mg/gram) cream 1 applic vaginal DIRECTED RF: 0 lisinopril 40 mg tablet 40 mg PO DAILY RF: 0 escitalopram oxalate 20 mg tablet 20 ng PO DAILY RF: 0 metoprolol tartrate 25 mg tablet 25 mg PO BID RF: 0 Jardiance 10 mg tablet 10 mg PO DAILY RF: 0 oxycodone [OxyContin] 10 mg tablet,oral only,ext.rel.12 hr 10 mg PO TID RF: 0 Toujeo Max U-300 SoloStar 300 unit/mL (3 mL) insulin pen RF: 0 calcium lactate 100 mg calcium tablet 100 mg PO BID RF: 0 Respironics Dreamstation BIPAP Qty: 1 RF: 0 insulin detemir U-100 [Levemir FlexTouch U-100 Insuln] 100 unit/mL (3 mL) insulin pen 54 unit SUBCUT BID RF: 0 Referrals: Pacheco Buenrostro MD [Physician] - Cyn Banuelos MD [Primary Care Provider] -
[2019-02-21 19:30] VITALS: BP 148/71; PULSE 80; RESP 24; TEMP 36.6; O2SAT 99
--- NOTE | 2019-02-21 19:34 | ED_ITS ---
HPI - Abdominal Pain <CHUCK George - Last Filed: 02/22/19 01:13> General Chief Complaint: Abdominal Pain Stated Complaint: ABD PAIN/NAUSEA Time Seen by Provider: 02/21/19 14:55 Source: patient and family Mode of arrival: ambulatory Limitations: no limitations History of Present Illness HPI narrative: This is a pleasant 64-year-old female, nonsmoker, presents with her spouse to ED with epigastric pain radiating to her back. She had this pain intermittently since December. She reports eating aggravates her pain especially at night and states it feels almost like heartburn. Recently she noticed decreased appetite also had several episodes of vomiting. She also noticed gold/like color stool, and feeling very gassy. She reports associated symptoms such as chills, feeling clammy, some difficulty breathing. She denies fever, diarrhea, constipation. She also reports that recent travel to [place] and back to home. She reports some swelling to lower extremities and has history of heart failure along [place]. She was seen by her primary care physician Joie Eldridge and cathy as imaging test ordered in 2 days, however, she could not wait and came in to ED for evaluation. Related Data Home Medications Medication Instructions Recorded Confirmed insulin lispro [Humalog KwikPen 20 - 28 unit SQ TIDAC #0 03/14/17 11/03/18 Insulin] oxybutynin chloride 5 mg PO BID #0 03/14/17 02/21/19 insulin detemir (U-100) 100 54 unit SUBCUT BID ml 04/21/18 11/03/18 unit/mL (3 mL) subcutaneous pen Respironics Dreamstation BIPAP #1 ea 11/03/18 02/21/19 calcium lactate 100 mg calcium 100 mg PO BID tab 11/03/18 11/03/18 tablet amitriptyline 10 mg PO DAILY 02/21/19 02/21/19 empagliflozin [Jardiance] 10 mg PO DAILY 02/21/19 02/21/19 escitalopram oxalate 20 ng PO DAILY 02/21/19 02/21/19 estradiol 1 applic VAGINAL DIRECTED 02/21/19 02/21/19 gabapentin 02/21/19 hydrocodone-acetaminophen 1 tab PO QID 02/21/19 02/21/19 insulin glargine U-300 conc 02/21/19 [Sung Hood U-300 SoloStar] lisinopril 40 mg PO DAILY 02/21/19 02/21/19 metoprolol tartrate 25 mg PO BID 02/21/19 02/21/19 oxycodone [OxyContin] 10 mg PO TID 02/21/19 02/21/19 tizanidine 4 mg PO TID 02/21/19 02/21/19 Previous Rx's Medication Instructions Recorded ondansetron 4 mg PO Q6-8H PRN #7 tab 02/21/19 Allergies Allergy/AdvReac Type Severity Reaction Status Date / Time erythromycin base Allergy Severe liver Verified 11/03/18 13:21 problems metformin Allergy Unknown pancreatiti Verified 11/03/18 13:21 s Review of Systems <CHUCK George - Last Filed: 02/22/19 01:13> Review of Systems General: Denies fever, chills, fatigue, malaise, sweats. HEENT: Denies sinus pain, ear pain, sore throat, difficulty swallowing, dizziness. Respiratory: See HPI Cardiovascular: Reports leg edema. Denies chest pain, palpitations, orthopnea. Gastrointestinal: See HPI : Denies dysuria, frequency, incontinence, hematuria, urinary retention. Musculoskeletal: Denies weakness, joint pain or bony pain. Skin: Denies rash, skin lesions, or other. Neurologic: Denies weakness, headache, numbness, change in speech, confusion, seizures, incoordination. Psychiatric: No concerning psychosocial issues. 12-point review of systems is negative except for those stated above. PFSH <CHUCK George - Last Filed: 02/22/19 01:13> Medical History Hypertension (Chronic) Insulin dependent diabetes mellitus (Chronic) Sick sinus syndrome (Chronic) Fibromyalgia syndrome (Chronic) Anxiety and depression (Chronic) Central sleep apnea (Chronic ~2006) Obstructive sleep apnea of adult (Chronic ~2006) Erosion of suburethral sling (Acute) First degree AV block (Acute) Morbid obesity (Acute) Surgical History History of bladder surgery (Acute) S/P laparoscopic supracervical hysterectomy (Acute) History of colonoscopy with polypectomy (Resolved 05/25/14) History of colonoscopy with polypectomy (Resolved 10/08/17) History of esophagogastroduodenoscopy (EGD) (Resolved 05/25/14) History of esophagogastroduodenoscopy (EGD) (Resolved 12/20/15) History of esophagogastroduodenoscopy (EGD) (Resolved 10/08/17) History of hysteroscopy (Resolved 10/10/09) History of lumbosacral spine surgery (Resolved 10/2012) History of neck surgery (Resolved 08/2012) Family History (Updated 06/14/18 @ 12:18 by Thania Clinton) Father TIA (transient ischemic attack) Grandfather Blood clot in vein Grandmother Stroke Mother Chronic back pain Grandfather Alzheimer's disease Grandmother MVA (motor vehicle accident) Brother Chronic back pain Sister No problems noted. Social History (Updated 11/07/18 @ 13:29 by CHUCK Churchill) marital status: details: to Chris, lives in [place] household members: spouse lives independently: Yes caregiver/support person: No housing: house Smoking Status: Never smoker alcohol intake: current Family History Father TIA (transient ischemic attack) Grandfather Blood clot in vein Grandmother Stroke Mother Chronic back pain Grandfather Alzheimer's disease Grandmother MVA (motor vehicle accident) Brother Chronic back pain Sister No problems noted. Social History marital status: details: junaid Perez, lives in [place] household members: spouse lives independently: Yes caregiver/support person: No housing: house Smoking Status: Never smoker alcohol intake: current Exam <CHUCK George - Last Filed: 02/22/19 01:13> Narrative Exam Narrative: GEN: Alert, oriented x 3, well appearing and nourished, and in no acute distress. Head: Normal cephalic, atraumatic. No scalp or temporal tenderness, palpable mass or rash. EYES: Pupils are equal, round, and reactive to light and accommodation. Extraocular muscles are intact bilaterally. There is no subconjunctival hemorrhage, exudate and sclera non-icteric. ENT: Nose without bleeding, purulent discharge. Mucous membrane moist, no mucosal lesion. Throat without erythema, tonsillar hypertrophy or exudate. Uvula in midline, airway patent. Neck: Trachea in midline. No JVD, non-tender without lymphadenopathy. No masses or thyroid megaly. Supple, non-tender and no meningeal signs. CARDIAC: Normal regular rate and rhythm without murmurs, gallops, or rubs. No chest wall tenderness. No peripheral edema, cyanosis or pallor. Capillary refill is less than 2 seconds. RESPIRATORY: Lungs are cleat to auscultate bilaterally. No cough, wheezes, rales, or rhonchi. No stridor, respiratory distress, increase work of breathing, or accessary muscle used. ABD: Abdomen soft, non-distended. Mild discomfort in mid upper abdomen to palpate. No guarding or rebound tenderness to palpate. Bowel sounds are normal in all 4 quadrants. There is no palpable masses or organomegaly. EXT: Full painless ROM of all extremities with no loss of sensation, strength, effusion or edema. SKIN: Warm, dry, normal color for patient. No erythema, lesions or rash over vi sible areas. BACK: Nontender without deformity or crepitance. No flank tenderness. NEUROLOGICAL: Alert and oriented to place, time and person. Sensation and motor function intact bilaterally. No facial droops, dysphasia. PSYCHIATRIC: Good judgement and reason, without hallucinations, abnormal affect or abnormal behaviors during the examination. Patient is not suicidal. Initial Vital Signs Initial Vital Signs: Vital Signs Temperature 98.0 F 02/21/19 14:53 Pulse Rate 78 02/21/19 14:53 Respiratory Rate 18 02/21/19 14:53 Blood Pressure 161/76 H 02/21/19 14:53 Pulse Oximetry 100 02/21/19 14:53 <Emily Gloria MD - Last Filed: 02/22/19 07:14> Initial Vital Signs Initial Vital Signs: Vital Signs Temperature 98.0 F 02/21/19 14:53 Pulse Rate 78 02/21/19 14:53 Respiratory Rate 18 02/21/19 14:53 Blood Pressure 161/76 H 02/21/19 14:53 Pulse Oximetry 100 02/21/19 14:53 Course <CHUCK George - Last Filed: 02/22/19 01:13> Orders Ordered: Discontinued Medications Sodium Chloride (Normal Saline 0.9%) 1,000 mls @ 150 mls/hr IV CONT STAN Last Infusion: 02/21/19 19:38 Dose: 0 mls/hr Admin: 02/21/19 15:49 Dose: 150 mls/hr Ondansetron HCl (Zofran) 4 mg IV NOW ONE Stop: 02/21/19 15:10 Last Admin: 02/21/19 15:49 Dose: 4 mg Ondansetron HCl (Zofran) 4 mg IV NOW ONE Stop: 02/21/19 17:11 Last Admin: 02/21/19 17:13 Dose: 4 mg Pantoprazole Sodium (Protonix) 40 mg IV NOW ONE Stop: 02/21/19 15:10 Last Admin: 02/21/19 15:49 Dose: 40 mg Vital Signs - 8 hr 02/21/19 17:00 02/21/19 19:07 02/21/19 19:30 Temperature 97.8 F Pulse Rate 63 74 80 Respiratory Rate 11 L 11 L 24 Blood Pressure [Right Arm] 142/71 H 150/68 H 148/71 H Pulse Oximetry 97 100 99 <Emily Gloria MD - Last Filed: 02/22/19 07:14> Orders Ordered: Discontinued Medications Sodium Chloride (Normal Saline 0.9%) 1,000 mls @ 150 mls/hr IV CONT STAN Last Infusion: 02/21/19 19:38 Dose: 0 mls/hr Admin: 02/21/19 15:49 Dose: 150 mls/hr Ondansetron HCl (Zofran) 4 mg IV NOW ONE Stop: 02/21/19 15:10 Last Admin: 02/21/19 15:49 Dose: 4 mg Ondansetron HCl (Zofran) 4 mg IV NOW ONE Stop: 02/21/19 17:11 Last Admin: 02/21/19 17:13 Dose: 4 mg Pantoprazole Sodium (Protonix) 40 mg IV NOW ONE Stop: 02/21/19 15:10 Last Admin: 02/21/19 15:49 Dose: 40 mg Vital Signs - 8 hr 02/21/19 17:00 02/21/19 19:07 02/21/19 19:30 Temperature 97.8 F Pulse Rate 63 74 80 Respiratory Rate 11 L 11 L 24 Blood Pressure [Right Arm] 142/71 H 150/68 H 148/71 H Pulse Oximetry 97 100 99 MDM - Abdominal Pain <Ollie RODDY CunninghamP - Last Filed: 02/22/19 01:13> Differential Diagnosis Differential diagnosis: Likely abdominal pain, pancreatitis, small bowel obstruction and other (cholecystitis) Medical Records Attestation: I reviewed the patient's medical records. Lab Data Attestation: I reviewed the patient's lab results. Result diagrams: 02/21/19 15:23 02/21/19 15:23 Lab Results 02/21/19 02/21/19 02/21/19 Range/Units 15:23 15:23 15:23 WBC 7.3 (4.5-11.0) X10^3/uL RBC 4.77 (4.0-5.2) X10^6/uL Hgb 13.4 (12.0-16.0) g/dL Hct 40.6 (36-46) % MCV 85.2 (80-100) fL MCH 28.1 (26-34) PG MCHC 33.0 (30-36) % RDW 13.9 (11.6-14.8) % Plt Count 286 (150-400) X10^3/uL Neut % (Auto) 77.0 H (50-75) % Lymph % (Auto) 15.6 L (25-40) % Shelby % (Auto) 6.0 (3-14) % Eos % (Auto) 0.7 L (2-4) % Baso % (Auto) 0.7 (0-2) % Neut # (Auto) 5600 (6922-0393) /uL Lymph # (Auto) 1100 (2290-8505) /uL Shelby # (Auto) 400 (0-900) /uL Eos # (Auto) 100 (0-450) /uL Baso # (Auto) 100 (0-100) /uL D-Dimer 204 (<230) ng/mL Sodium 141 (137-145) mmol/L Potassium 4.2 (3.4-5.1) mmol/L Chloride 103 (98-107) mmol/L Carbon Dioxide 25 (22-32) mmol/L BUN 19 H (7-17) mg/dL Creatinine 0.80 (0.52-1.04) mg/dL Estimated GFR > 60.0 (>60) mL/min BUN/Creatinine Ratio 23.8 H (6-22) Glucose 230 H (80-110) mg/dL Calcium 10.0 (8.4-10.2) mg/dL Total Bilirubin 0.5 (0.2-1.3) mg/dL AST 28 (14-36) IU/L ALT 58 H (9-52) IU/L Alkaline Phosphatase 166 H (38-126) U/L Total Creatine Kinase (30-135) U/L CK-MB (CK-2) CK-MB (CK-2) Rel Index Troponin I (0.01-0.034) ng/mL B-Natriuretic Peptide (<100) Total Protein 7.2 (6.3-8.2) g/dL Albumin 4.4 (3.5-5.0) g/dL Globulin 2.8 (1.7-4.1) g/dL Albumin/Globulin Ratio 1.6 (1.0-2.8) Amylase (30-110) U/L Lipase < 10 L (23-300) U/L 02/21/19 02/21/19 Range/Units 15:23 15:23 WBC (4.5-11.0) X10^3/uL RBC (4.0-5.2) X10^6/uL Hgb (12.0-16.0) g/dL Hct (36-46) % MCV (80-100) fL MCH (26-34) PG MCHC (30-36) % RDW (11.6-14.8) % Plt Count (150-400) X10^3/uL Neut % (Auto) (50-75) % Lymph % (Auto) (25-40) % Shelby % (Auto) (3-14) % Eos % (Auto) (2-4) % Baso % (Auto) (0-2) % Neut # (Auto) (7451-2860) /uL Lymph # (Auto) (5303-2172) /uL Shelby # (Auto) (0-900) /uL Eos # (Auto) (0-450) /uL Baso # (Auto) (0-100) /uL D-Dimer (<230) ng/mL Sodium (137-145) mmol/L Potassium (3.4-5.1) mmol/L Chloride (98-107) mmol/L Carbon Dioxide (22-32) mmol/L BUN (7-17) mg/dL Creatinine (0.52-1.04) mg/dL Estimated GFR (>60) mL/min BUN/Creatinine Ratio (6-22) Glucose (80-110) mg/dL Calcium (8.4-10.2) mg/dL Total Bilirubin (0.2-1.3) mg/dL AST (14-36) IU/L ALT (9-52) IU/L Alkaline Phosphatase (38-126) U/L Total Creatine Kinase 70 (30-135) U/L CK-MB (CK-2) TNP CK-MB (CK-2) Rel Index TNP Troponin I < 0.012 (0.01-0.034) ng/mL B-Natriuretic Peptide < 100 (<100) Total Protein (6.3-8.2) g/dL Albumin (3.5-5.0) g/dL Globulin (1.7-4.1) g/dL Albumin/Globulin Ratio (1.0-2.8) Amylase 48 (30-110) U/L Lipase (23-300) U/L Point of care testing: Urine Dip Bedside Urine Glucose 1000 mg/dl Bedside Urine Bilirubin - Negative Bedside Urine Ketone - Negative Urine Specific [place] 1.015 Bedside Urine Occult Blood - Negative Bedside Urine pH 5.5 Bedside Urine Protein - Negative Bedside Urine Urobilinogen - Negative Bedside Urine Nitrite - Negative Bedside Urine Leukocytes - Negative Esterase Imaging Data US - abdomen: Radiologist's impression: Chart Viewer Diagnostics DATE TYPE STATUS AUTHOR Hx 02/21/19 17:46 Lissa Pereira 02/21/19 15:10 Kenny Gordon 02/21/19 15:10 Kenny Gordon 12/17/18 00:00 Prasanna Serna 03/14/17 17:36 Emily Payan 64, F0 1955 REG ER, ED.LOC - Main ED: R08 Abdominal Pain Search Chart No Data to Display NF - Not included in interaction checking liver problems pancreatitis ONSET ~2006 ~2006 Today 19:07 Emily Payan 64 F [address] [address] Ultrasound Report Signed Patient: Emily Payan LMR#: [id number] : 4Acct:[id number] Age/Sex: 64 / FDate of Service: 02/21/19 Loc: ED Accession Number: [id number] Procedure: US abdomen limited Ordering Provider: Ollie Cunningham PROCEDURE: US ABDOMEN LIMITED INDICATIONS: UPPER ABDOMEN PAIN TECHNIQUE: Real-time focused scanning was performed of the abdomen, with image documentation. COMPARISON: None. FINDINGS: Limited study at clinician request. The liver is mildly enlarged at 18.9 cm craniocaudad. No intrahepatic mass or biliary distention is found. The gallbladder wall measures up to 3.1 mm, thickened. A nonvascular mass like structure is seen at the gallbladder fundus, measuring 13 x 11 x 6 mm. Bile duct measures 4.7 mm at the zak hepatis. This is normal. No gallstones seen. Limited visualization of the pancreas appears normal. IMPRESSION: Limited study at clinician request. Possible mass lesion gallbladder fundus measuring up to 13 x 11 x 6 mm with gallbladder wall thickening measuring up to 3.[address] scanning is recommended if cholecystectomy is not anticipated. Dictated by: Kenny Gordon M.D. on 02/21/2019 at 16:20 Approved by: Kenny Gordon M.D. on 02/21/2019 at 16:23 ECG Data Attestation: I personally reviewed and interpreted this ECG as follows: Prior ECG tracings: available for review Interpretation: Sinus Jesus rate at 59, Normal [place], Fist degree AV block which is new without ST elevation or depression MDM Narrative Medical decision making narrative: This is a pleasant 64-year-old female presents ED with epigastric pain radiating to back with nausea and vomiting. She endorses chills, feeling clammy and short of breath. She reports pain has been going on and off for about 3 months. However, she now has nausea and vomiting, decreased appetite. She has imaging test ordered by PCP in 2 days was unable to wait and came in to ED for an evaluation. EKG was obtained sinus Jesus rated 59. D-dimer was obtained due to patient's recent travel and short of breath which showed negative. BNP was also drawn for short of breath, self- reported bilateral leg swelling with history of heart failure, the result was negative. Cardiac enzymes were drawn with negative finding. Her liver function test was mildly elevated but improved since November 2018. Amylase and lipase were within normal. Abdominal ultrasound shows possible mass lesion in gallbladder fundus with gallbladder or thickening. The findings were discussed with Dr. Kowalski and consulted. As requested per Dr. Kowalski, double contrasted CT abdome n/pelvis was obtained. According to CT, of small focus and adherent sludge within the gallbladder with differential diagnosis including neoplasm. requested patient to follow up with clinic tomorrow by calling the clinic. Patient was discharged with Zofran for as needed home use. The patient reports pain and nausea had improved after IV Zofran and pantoprazole and IVF NS. The patient declined further pain medication. The patient reports she has narcotic pain medications at home and she was advised to use it as needed. Patient verbalized the understanding and all questions were answered. The patient and spouse agreed with treatment plan to follow up with [facility] tomorrow. <Emily Gloria MD - Last Filed: 02/22/19 07:14> Lab Data Lab Results 02/21/19 02/21/19 02/21/19 Range/Units 15:23 15:23 15:23 WBC 7.3 (4.5-11.0) X10^3/uL RBC 4.77 (4.0-5.2) X10^6/uL Hgb 13.4 (12.0-16.0) g/dL Hct 40.6 (36-46) % MCV 85.2 (80-100) fL MCH 28.1 (26-34) PG MCHC 33.0 (30-36) % RDW 13.9 (11.6-14.8) % Plt Count 286 (150-400) X10^3/uL Neut % (Auto) 77.0 H (50-75) % Lymph % (Auto) 15.6 L (25-40) % Shelby % (Auto) 6.0 (3-14) % Eos % (Auto) 0.7 L (2-4) % Baso % (Auto) 0.7 (0-2) % Neut # (Auto) 5600 (4745-3761) /uL Lymph # (Auto) 1100 (6521-1879) /uL Shelby # (Auto) 400 (0-900) /uL Eos # (Auto) 100 (0-450) /uL Baso # (Auto) 100 (0-100) /uL D-Dimer 204 (<230) ng/mL Sodium 141 (137-145) mmol/L Potassium 4.2 (3.4-5.1) mmol/L Chloride 103 (98-107) mmol/L Carbon Dioxide 25 (22-32) mmol/L BUN 19 H (7-17) mg/dL Creatinine 0.80 (0.52-1.04) mg/dL Estimated GFR > 60.0 (>60) mL/min BUN/Creatinine Ratio 23.8 H (6-22) Glucose 230 H (80-110) mg/dL Calcium 10.0 (8.4-10.2) mg/dL Total Bilirubin 0.5 (0.2-1.3) mg/dL AST 28 (14-36) IU/L ALT 58 H (9-52) IU/L Alkaline Phosphatase 166 H (38-126) U/L Total Creatine Kinase (30-135) U/L CK-MB (CK-2) CK-MB (CK-2) Rel Index Troponin I (0.01-0.034) ng/mL B-Natriuretic Peptide (<100) Total Protein 7.2 (6.3-8.2) g/dL Albumin 4.4 (3.5-5.0) g/dL Globulin 2.8 (1.7-4.1) g/dL Albumin/Globulin Ratio 1.6 (1.0-2.8) Amylase (30-110) U/L Lipase < 10 L (23-300) U/L 02/21/19 02/21/19 Range/Units 15:23 15:23 WBC (4.5-11.0) X10^3/uL RBC (4.0-5.2) X10^6/uL Hgb (12.0-16.0) g/dL Hct (36-46) % MCV (80-100) fL MCH (26-34) PG MCHC (30-36) % RDW (11.6-14.8) % Plt Count (150-400) X10^3/uL Neut % (Auto) (50-75) % Lymph % (Auto) (25-40) % Shelby % (Auto) (3-14) % Eos % (Auto) (2-4) % Baso % (Auto) (0-2) % Neut # (Auto) (5687-1369) /uL Lymph # (Auto) (2769-8484) /uL Shelby # (Auto) (0-900) /uL Eos # (Auto) (0-450) /uL Baso # (Auto) (0-100) /uL D-Dimer (<230) ng/mL Sodium (137-145) mmol/L Potassium (3.4-5.1) mmol/L Chloride (98-107) mmol/L Carbon Dioxide (22-32) mmol/L BUN (7-17) mg/dL Creatinine (0.52-1.04) mg/dL Estimated GFR (>60) mL/min BUN/Creatinine Ratio (6-22) Glucose (80-110) mg/dL Calcium (8.4-10.2) mg/dL Total Bilirubin (0.2-1.3) mg/dL AST (14-36) IU/L ALT (9-52) IU/L Alkaline Phosphatase (38-126) U/L Total Creatine Kinase 70 (30-135) U/L CK-MB (CK-2) TNP CK-MB (CK-2) Rel Index TNP Troponin I < 0.012 (0.01-0.034) ng/mL B-Natriuretic Peptide < 100 (<100) Total Protein (6.3-8.2) g/dL Albumin (3.5-5.0) g/dL Globulin (1.7-4.1) g/dL Albumin/Globulin Ratio (1.0-2.8) Amylase 48 (30-110) U/L Lipase (23-300) U/L Point of care testing: Urine Dip Bedside Urine Glucose 1000 mg/dl Bedside Urine Bilirubin - Negative Bedside Urine Ketone - Negative Urine Specific [place] 1.015 Bedside Urine Occult Blood - Negative Bedside Urine pH 5.5 Bedside Urine Protein - Negative Bedside Urine Urobilinogen - Negative Bedside Urine Nitrite - Negative Bedside Urine Leukocytes - Negative Esterase Discharge Plan Departure Patient Disposition: Home Clinical Impression: Cholecystitis, Gallbladder mass Nausea & vomiting Qualifiers: Vomiting type: unspecified Vomiting Intractability: non-intractable Qualified Code(s): R11.2 - Nausea with vomiting, unspecified Discharge Date/Time: 02/21/19 19:48 Interventions: ED Discharge Assessment Last Done: 02/21/19 19:50 Instructions: DI for Abdominal Pain-Adult, Nausea and Vomiting-Adult, DI for Cholecystitis Activity Restrictions/Additional Instructions: You have been diagnosed with [ mid upper abdominal pain, possible cholecystitis, mass in gallbladder per ultrasound and CT scan. You're EKG, chest x-ray, BNP, D-dimer cardiac enzyme, chemistry looks unremarkable. You're liver function test his mildly elevated but looks better than previous times. 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 I spoke with over the phone dear findings. He instructed to follow up with surgery Clinic tomorrow by calling the office]. What to do: *Take your medications as directed. Please take her pain medication that you have at home as needed for pain. 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 *Follow up with [facility] tomorrow and please call the clinic. Please follow up with your primary care provider in 2-3 days, call for an appointment. Let them know you were seen in the ED and that we asked you to be seen in follow up. *Return to ED if you have any new, worsening, or concerning symptoms, such as [worsening pain, fever, chills, breathing difficulty, chest pain, unable to tolerate fluids, any acute concerns]. Prescriptions: New ondansetron 4 mg tablet,disintegrating 4 mg PO Q6-8H PRN (Reason: nausea and vomiting) Qty: 7 RF: 0 No Action oxybutynin chloride 5 MG tablet 5 mg PO BID Qty: 0 RF: 0 insulin lispro [Humalog KwikPen Insulin] 100 UNIT/1 ML insulin pen 20 - 28 unit SQ TIDAC Qty: 0 RF: 0 gabapentin 600 mg tablet RF: 0 tizanidine 4 mg tablet 4 mg PO TID RF: 0 amitriptyline 10 mg tablet 10 mg PO DAILY RF: 0 hydrocodone-acetaminophen 7.5-325 mg tablet 1 tab PO QID RF: 0 estradiol 0.01 % (0.1 mg/gram) cream 1 applic vaginal DIRECTED RF: 0 lisinopril 40 mg tablet 40 mg PO DAILY RF: 0 escitalopram oxalate 20 mg tablet 20 ng PO DAILY RF: 0 metoprolol tartrate 25 mg tablet 25 mg PO BID RF: 0 Jardiance 10 mg tablet 10 mg PO DAILY RF: 0 oxycodone [OxyContin] 10 mg tablet,oral only,ext.rel.12 hr 10 mg PO TID RF: 0 Toujeo Max U-300 SoloStar 300 unit/mL (3 mL) insulin pen RF: 0 calcium lactate 100 mg calcium tablet 100 mg PO BID RF: 0 [employer] Dreamstation BIPAP Qty: 1 RF: 0 insulin detemir U-100 [Levemir FlexTouch U-100 Insuln] 100 unit/mL (3 mL) insulin pen 54 unit SUBCUT BID RF: 0 Referrals: Pacheco Buenrostro MD [Physician] - Cyn Banuelos MD [Primary Care Provider] -
== END 2019-02-21 19:48 | disposition home or self-care (01) ==
PROVIDERS: Emergency Provider Nurse Practitioner Family; PCP Anesthesiology Pain Medicine
DX: K81.9 Cholecystitis, unspecified (principal); K82.8 Other specified diseases of gallbladder; R11.2 Nausea with vomiting, unspecified; R10.9 Unspecified abdominal pain
CPT/HCPCS: 36591; 71045; 74177; 76705; 80053; 81003; 82150; 82550; 83690; 83880; 84484; 85025; 85379; 93005; 93010; 96361; 96374; 96375; 96376; 99284; 99285; C9113; J2405; Q9967

== ENCOUNTER 2019-03-02 08:41 | Emergency (ER) | payer MEDICARE, OTHER, SELFPAY ==
[2019-03-02 08:49] VITALS: BP 158/67; PULSE 73; RESP 16; TEMP 36.8; O2SAT 100; BMI 40.2
[2019-03-02 09:27] LABS: Add Manual Diff / Slide Review NO; Basophils Absolute Auto 100 /uL (0-100); Basophils Percent Auto 0.5 % (0-2); Eosinophils Absolute Auto 0 /uL (0-450); Eosinophils Percent Auto 0.2 % (2-4); Hematocrit 40.1 % (36-46); Hemoglobin 13.4 g/dL (12.0-16.0); Lymphocytes Absolute Auto 800 /uL (1100-4500); Lymphocytes Percent Auto 6.8 % (25-40); Mean Corpuscular HGB Conc 33.3 % (30-36); Mean Corpuscular Hemoglobin 27.9 PG (26-34); Mean Corpuscular Volume 83.6 fL (80-100); Monocytes Absolute Auto 400 /uL (0-900); Monocytes Percent Auto 3.5 % (3-14); Neutrophils Absolute Auto 10500 /uL (1500-7000); Platelet Count 308 X10^3/uL (150-400); Red Blood Cell Count 4.79 X10^6/uL (4.0-5.2); Red Cell Distribution Width 13.3 % (11.6-14.8); White Blood Cell Count 11.8 X10^3/uL (4.5-11.0)
[2019-03-02 09:37] LABS: Alanine Aminotransferase 39 IU/L (9-52); Albumin 4.5 g/dL (3.5-5.0); Albumin Globulin Ratio 1.6 (1.0-2.8); Alkaline Phosphatase 174 U/L (38-126); Aspartate Aminotransferase 28 IU/L (14-36); BUN Creatinine Ratio 23.3 (6-22); Bilirubin Total 0.6 mg/dL (0.2-1.3); Blood Urea Nitrogen 21 mg/dL (7-17); Calcium 9.5 mg/dL (8.4-10.2); Carbon Dioxide 21 mmol/L (22-32); Chloride 104 mmol/L (98-107); Estimated Glomerular Filt Rate > 60.0 mL/min (>60); Globulin 2.9 g/dL (1.7-4.1); Glucose 185 mg/dL (80-110); HEMOLYSIS 45 (0-50); Sodium 139 mmol/L (137-145); Total Protein 7.4 g/dL (6.3-8.2)
[2019-03-02 09:38] LABS: Lipase < 10 U/L (23-300)
--- NOTE | 2019-03-02 09:48 | ED_ITS ---
HPI - Abdominal Pain General Chief Complaint: Abdominal Pain Stated Complaint: severe abdominal pain/gallbladder Time Seen by Provider: 03/02/19 08:54 Source: patient Mode of arrival: ambulatory Limitations: no limitations History of Present Illness HPI narrative: Patient is a 64-year-old female presenting with lower abdominal pain ongoing for the last 3-4 days. She was seen evaluated here last week diagnosed with a mass in the gallbladder. She is scheduled to have a this removed next week with Dr. Lira. She feels like she has to use the restroom however only small amount of stool comes out. She is taking oxycodone for pain she states she is taking 4 stool softeners and night. She sometimes feels naus eous but no vomiting. MD complaint: abdominal pain Pain Consistency: constant Severity: mild Quality: cramping Migration to: no migration Relieving factors: nothing Exacerbating factors: nothing Related Data Home Medications Medication Instructions Recorded Confirmed insulin lispro [Humalog KwikPen 20 - 28 unit SQ TIDAC #0 03/14/17 02/24/19 Insulin] oxybutynin chloride 5 mg PO BID #0 03/14/17 02/24/19 insulin detemir (U-100) 100 54 unit SUBCUT BID ml 04/21/18 02/24/19 unit/mL (3 mL) subcutaneous pen Respironics Dreamstation BIPAP #1 ea 11/03/18 02/24/19 calcium lactate 100 mg calcium 100 mg PO BID tab 11/03/18 02/24/19 tablet amitriptyline 10 mg PO DAILY 02/21/19 02/24/19 empagliflozin [Jardiance] 10 mg PO DAILY 02/21/19 02/24/19 escitalopram oxalate 20 ng PO DAILY 02/21/19 02/24/19 estradiol 1 applic VAGINAL DIRECTED 02/21/19 02/24/19 gabapentin 02/21/19 02/24/19 hydrocodone-acetaminophen 1 tab PO QID 02/21/19 02/24/19 insulin glargine U-300 conc 02/21/19 02/24/19 [Toujeo Max U-300 SoloStar] lisinopril 40 mg PO DAILY 02/21/19 02/24/19 metoprolol tartrate 25 mg PO BID 02/21/19 02/24/19 oxycodone [OxyContin] 10 mg PO TID 02/21/19 02/24/19 tizanidine 4 mg PO TID 02/21/19 02/24/19 Previous Rx's Medication Instructions Recorded ondansetron 4 mg PO Q6-8H PRN #7 tab 02/21/19 ondansetron HCl 4 mg tablet 4 mg PO TID PRN 14 Days #30 tab 02/24/19 Allergies Allergy/AdvReac Type Severity Reaction Status Date / Time erythromycin base Allergy Severe liver Verified 03/02/19 08:49 problems metformin Allergy Unknown pancreatiti Verified 03/02/19 08:49 s Review of Systems Review of Systems GENERAL: Denies chills, fatigue, malaise, fever, sweats, travel HEENT: Denies sinus pain, ear pain, sore throat, difficulty swallowing, neck pain RESPIRATORY: Denies dyspnea, cough, wheezing, hemoptysis, sputum. CARDIOVASCULAR: Denies chest pain, palpitations, orthopnea, edema GASTROINTESTINAL: See HPI : Denies dysuria, frequency, incontinence, hematuria, urinary retention, flank pain. MUSCULOSKELETAL: Denies weakness, joint pain, or bony pain SKIN: No rash, no erythema, no pruritus NEUROLOGIC: Denies weakness, dizziness, headache, numbness, change in speech, confusion PSYCHIATRIC: No concerning psychosocial issues. 12 point review of systems is negative except for those stated above and HPI [facility] Medical History Hypertension (Chronic) Insulin dependent diabetes mellitus (Chronic) Sick sinus syndrome (Chronic) Fibromyalgia syndrome (Chronic) Anxiety and depression (Chronic) Central sleep apnea (Chronic ~2006) Obstructive sleep apnea of adult (Chronic ~2006) Erosion of suburethral sling (Acute) First degree AV block (Acute) Morbid obesity (Acute) Pancreatitis (Acute) Surgical History History of bladder surgery (Acute) S/P laparoscopic supracervical hysterectomy (Acute) History of colonoscopy with polypectomy (Resolved 05/25/14) History of colonoscopy with polypectomy (Resolved 10/08/17) History of esophagogastroduodenoscopy (EGD) (Resolved 05/25/14) History of esophagogastroduodenoscopy (EGD) (Resolved 12/20/15) History of esophagogastroduodenoscopy (EGD) (Resolved 10/08/17) History of hysteroscopy (Resolved 10/10/09) History of lumbosacral spine surgery (Resolved 10/2012) History of neck surgery (Resolved 08/2012) Family History Father TIA (transient ischemic attack) Grandfather Blood clot in vein Grandmother Stroke Mother Chronic back pain Grandfather Alzheimer's disease Grandmother MVA (motor vehicle accident) Brother Chronic back pain Sister No problems noted. Social History marital status: details: junaid Perez, lives in [place] household members: spouse lives independently: Yes caregiver/support person: No housing: house Smoking Status: Never smoker alcohol intake: current Family History Father TIA (transient ischemic attack) Grandfather Blood clot in vein Grandmother Stroke Mother Chronic back pain Grandfather Alzheimer's disease Grandmother MVA (motor vehicle accident) Brother Chronic back pain Sister No problems noted. Social History marital status: details: junaid Perez lives in [place] household members: spouse lives independently: Yes caregiver/support person: No housing: house Smoking Status: Never smoker alcohol intake: current Exam Initial Vital Signs Initial Vital Signs: Vital Signs Temperature 98.2 F 03/02/19 08:49 Pulse Rate 73 03/02/19 08:49 Respiratory Rate 16 03/02/19 08:49 Blood Pressure 158/67 H 03/02/19 08:49 Pulse Oximetry 100 03/02/19 08:49 GENERAL: Well-appearing, well-nourished and in no acute distress. HEENT: Head atraumatic,EOMI, pupils reactive, face symmetric, moist mucous membranes CARDIOVASCULAR: Regular rate and rhythm without murmurs, rubs or gallops. RESPIRATORY: Breath sounds equal bilaterally, no wheezes rales or rhonchi. ABDOMEN: Soft, lower abdominal mild pain with palpation no upper abdominal pain negative murmur sign EXTREMITIES: Normal range of motion, no clubbing or edema. Neurovascularly intact NEUROLOGICAL: Alert and oriented x4.Normal gait and speech. Cranial nerves II through XII grossly intact. SKIN: Warm, dry, no laceration, no petechiae, no rashes or lesions. Course Orders Ordered: ED Orders 03/02/19 09:05 Complete Blood Count AUTO DIFF Stat Comprehensive Metabolic Panel Stat Lipase Stat 03/02/19 09:13 EKG-12 Lead Stat 03/02/19 09:35 Partial Thromboplastin Time Stat Prothrombin Time INR Stat 03/02/19 09:48 XR abdomen min 2V Stat Vital Signs - 8 hr 03/02/19 08:49 03/02/19 10:47 Temperature 98.2 F Pulse Rate 73 77 Respiratory Rate 16 20 Blood Pressure 158/67 H 144/78 H Pulse Oximetry 100 99 MDM - Abdominal Pain Lab Data Attestation: I reviewed the patient's lab results. Result diagrams: 03/02/19 09:05 03/02/19 09:05 Lab Results 03/02/19 03/02/19 03/02/19 Range/Units 09:05 09:05 09:35 WBC 11.8 H (4.5-11.0) X10^3/uL RBC 4.79 (4.0-5.2) X10^6/uL Hgb 13.4 (12.0-16.0) g/dL Hct 40.1 (36-46) % MCV 83.6 (80-100) fL MCH 27.9 (26-34) PG MCHC 33.3 (30-36) % RDW 13.3 (11.6-14.8) % Plt Count 308 (150-400) X10^3/uL Neut % (Auto) 89.0 H (50-75) % Lymph % (Auto) 6.8 L (25-40) % [place] % (Auto) 3.5 (3-14) % Eos % (Auto) 0.2 L (2-4) % Baso % (Auto) 0.5 (0-2) % Neut # (Auto) 69893 H (2994-2189) /uL Lymph # (Auto) 800 L (4304-7199) /uL [place] # (Auto) 400 (0-900) /uL Eos # (Auto) 0 (0-450) /uL Baso # (Auto) 100 (0-100) /uL PT 11.6 (10.1-12.7) SECONDS INR 1.0 (0.9-1.3) APTT 30 (26.4-36.2) SECONDS Sodium 139 (137-145) mmol/L Potassium 4.0 (3.4-5.1) mmol/L Chloride 104 (98-107) mmol/L Carbon Dioxide 21 L (22-32) mmol/L BUN 21 H (7-17) mg/dL Creatinine 0.90 (0.52-1.04) mg/dL Estimated GFR > 60.0 (>60) mL/min BUN/Creatinine Ratio 23.3 H (6-22) Glucose 185 H (80-110) mg/dL Calcium 9.5 (8.4-10.2) mg/dL Total Bilirubin 0.6 (0.2-1.3) mg/dL AST 28 (14-36) IU/L ALT 39 (9-52) IU/L Alkaline Phosphatase 174 H (38-126) U/L Total Protein 7.4 (6.3-8.2) g/dL Albumin 4.5 (3.5-5.0) g/dL Globulin 2.9 (1.7-4.1) g/dL Albumin/Globulin Ratio 1.6 (1.0-2.8) Lipase < 10 L (23-300) U/L Point of care testing: Urine Dip Bedside Urine Glucose 1000 mg/dl Bedside Urine Bilirubin - Negative Bedside Urine Ketone +/- 5 Urine Specific [place] 1.015 Bedside Urine Occult Blood - Negative Bedside Urine pH 6 Bedside Urine Protein - Negative Bedside Urine Urobilinogen - Negative Bedside Urine Nitrite - Negative Bedside Urine Leukocytes - Negative Esterase Imaging Data Abdominal x-ray: Radiologist's impression: PROCEDURE: XR ABDOMEN MIN 2V INDICATIONS: lower ab pain TECHNIQUE: 2 views of the abdomen were acquired. COMPARISON: [facility], CT, CT ABDOMEN PELVIS W CON, 02/21/2019, 18:54. FINDINGS: Surgical changes and devices: Postoperative changes related to a lower lumbar fusion are present. Degenerative changes of the lumbosacral spine are present. There also appear to be mild degenerative changes of the hips and pubis symphysis. Bowel: No pneumoperitoneum. Large amount of residual stool is identified within the colon. No air-filled distended small bowel loops are evident demonstrating air-fluid levels. Soft tissues: No masses; visualized solid organ contours appear normal in size. No suspicious abdominal calcifications. Bones: No suspicious bony abnormalities. IMPRESSION: Large amount of stool within the colon may represent constipation. No bowel obstruction is evident. Dictated by: Britton Madden M.D. on 03/02/2019 at 9:18 ECG Data Attestation: I personally reviewed and interpreted this ECG as follows: Interpretation: Normal sinus rhythm rate [address] changes no T-wave inversions p.r. interval 198 MDM Narrative Medical decision making narrative: Patient is having lower abdominal pain x-ray shows constipation. We discussed a CT however she did have a CT last week. She would prefer not to have 1. It sounds clinically that she may be constipated having only small amounts of stool. She is taking oxycodone as well. Discussed proper bowel regimen and increasing water intake. Discharge Plan Departure Patient Disposition: Home Clinical Impression: Constipation Qualifiers: Constipation type: drug induced constipation Qualified Code(s): K59.03 - Drug induced constipation Discharge Date/Time: 03/02/19 10:48 Interventions: ED Discharge Assessment Last Done: 03/02/19 10:47 Instructions: Constipation Activity Restrictions/Additional Instructions: *You have been diagnosed with constipation *What to do: X-ray shows constipation, increase water intake, prunes or dried fruit also help *Continue to take medications as directed MiraLax once daily, Dulcolax 100 mg once a day *Follow up with your primary care provider in 2-3 days *Return to ER if you should have increasing pain vomiting or any new, worsening or concerning symptoms Prescriptions: No Action oxybutynin chloride 5 MG tablet 5 mg PO BID Qty: 0 RF: 0 insulin lispro [Humalog KwikPen Insulin] 100 UNIT/1 ML insulin pen 20 - 28 unit SQ TIDAC Qty: 0 RF: 0 ondansetron HCl [Zofran] 4 mg tablet 4 mg PO TID PRN (Reason: nausea and vomiting) 14 Days Qty: 30 RF: 1 gabapentin 600 mg tablet RF: 0 tizanidine 4 mg tablet 4 mg PO TID RF: 0 amitriptyline 10 mg tablet 10 mg PO DAILY RF: 0 hydrocodone-acetaminophen 7.5-325 mg tablet 1 tab PO QID RF: 0 estradiol 0.01 % (0.1 mg/gram) cream 1 applic vaginal DIRECTED RF: 0 lisinopril 40 mg tablet 40 mg PO DAILY RF: 0 escitalopram oxalate 20 mg tablet 20 ng PO DAILY RF: 0 metoprolol tartrate 25 mg tablet 25 mg PO BID RF: 0 Jardiance 10 mg tablet 10 mg PO DAILY RF: 0 oxycodone [OxyContin] 10 mg tablet,oral only,ext.rel.12 hr 10 mg PO TID RF: 0 Toujeo Max U-300 SoloStar 300 unit/mL (3 mL) insulin pen RF: 0 ondansetron 4 mg tablet,disintegrating 4 mg PO Q6-8H PRN (Reason: nausea and vomiting) Qty: 7 RF: 0 calcium lactate 100 mg calcium tablet 100 mg PO BID RF: 0 Respironics Dreamstation BIPAP Qty: 1 RF: 0 insulin detemir U-100 [Levemir FlexTouch U-100 Insuln] 100 unit/mL (3 mL) insulin pen 54 unit SUBCUT BID RF: 0 Referrals: Cyn Banuelos MD [Primary Care Provider] - Ernie Lira MD [Physician] -
[2019-03-02 09:49] LABS: Prothrombin Time 11.6 SECONDS (10.1-12.7)
[2019-03-02 09:52] LABS: PTT Partial Thromboplastin Tim 30 SECONDS (26.4-36.2)
[2019-03-02 10:47] VITALS: BP 144/78; PULSE 77; RESP 20; O2SAT 99
== END 2019-03-02 10:48 | disposition home or self-care (01) ==
PROVIDERS: Emergency Provider Emergency Medicine; PCP Anesthesiology Pain Medicine
DX: K59.03 Drug induced constipation (principal)
CPT/HCPCS: 36415; 36591; 74019; 80053; 81003; 83690; 85025; 85610; 85730; 93005; 99282; 99285

== ENCOUNTER 2019-03-08 08:33 | Day surgery (SDC) | payer MEDICARE, OTHER, SELFPAY ==
[2019-02-28 14:44] VITALS: BMI 41.0
[2019-03-08] VITALS (13 sets, daily range): BP systolic 123–154; BP diastolic 50–84; PULSE 66–74; RESP 10–20; TEMP 36.2–36.8; O2SAT 92–100; BMI 39.8
--- NOTE | 2019-03-08 | PATH_ITS ---
[facility] Accession Number: [id number] . 01 Material submitted: . gallbladder - GALLBLADDER . 02 Diagnosis: Gallbladder: Chronic cholecystitis with no calculi identified. MRV/03/10/2019 . 02 Electronically signed: . Bartolome Cheng MD, Pathologist NPI- [id number] . 01 Gross description: . Received in formalin, labeled gallbladder, is an intact gallbladder (length-7.9 cm, diameter-2.8 cm) with blue- sylvester smooth shiny serosa and a patent cystic duct. No lymph nodes are identified. The lumen contains brown-green viscous bile. No calculi are present. The mucosa is dark green smooth and flat. The wall is up to 0.1 cm thick. No nodules, masses or lesions are identified. Section code: (A1) cystic duct resection margin and two serial sections from the body; (A2) two longitudinal sections from the fundus. ([id number]) /MRV . 02 Pathologist provided ICD-10: K81.1 . 02 CPT . 952827 Performed at: 01 [facility] [address] [place] [address], [place], [place] [id number] MD Kai Vega MD Phone: [phone] Performed at: 02 [facility] [address] [place], [place] [id number] MD Jill Ward MD Phone: [phone]
--- NOTE | 2019-03-08 09:26 | PM.PREOP ---
Pre-operative Note Interval Note History & Physical reviewed/Exam performed by Physician: No Changes to H&P: No
[2019-03-08] MEDS: LACTATED RINGERS 1,000 ML 42 ML IV (09:29)
[2019-03-08] MEDS: CEFAZOLIN 2 GM/100 ML FROZ.PIGGY IV (09:45)
--- NOTE | 2019-03-08 10:26 | SUR.OPER ---
Supine on padded OR bed, head on pillow, safety belt at thigh, . BOtH arm secured on padded arm oard <90 degrees abduction. Legs uncrossed. Padded footboard in place. Tape over blanket to secure lower legs.
[2019-03-08] MEDS: BUPIVACAINE 0.25% (PF) VIAL 30 ML INJ (10:32)
--- NOTE | 2019-03-08 11:24 | SUR.PHASEI ---
Dr Jones aware of CBG.
[2019-03-08] MEDS: ONDANSETRON 4 MG/2 ML INJ IV ×2 (11:31→12:31)
--- NOTE | 2019-03-08 11:31 | P.OP_ITS ---
Operative Date/Time/Diagnoses Date of procedure: 03/08/19 Time of procedure: 11:25 Pre-op diagnosis: billiary colic Post-op diagnosis: same Procedure & Clinicians Procedure: Laparoscopic cholecystectomy Same procedure as scheduled: Yes Indications: 64-year-old female with biliary colic presents for elective cholecystectomy Surgeon: Ernie Lira Click Yes if Unassisted: Yes Anesthesia Type: General Operative Notes Findings: Chronic cholecystitis Specimen(s): other (Gallbladder) Estimated Blood Loss (mL): 10 Procedure in detail: Patient was brought to the operating room placed supine on the table. Bilateral lower extremity compression devices were applied. General anesthesia was induced and she was intubated with LMA. She received 2 g of Ancef prior to skin incision. A time-out was performed to ensure the correct patient procedure necessary equipment within the operating room. She was prepped and draped in the usual sterile fashion. Infraumbilical incision was made the umbilical stalk was grasped and elevated and the fascia was sharply incised. The abdomen was entered atraumatically. A 10 mm trocar was then placed into the abdomen. Pneumoperitoneum was established. The laparoscopic camera was inserted into the abdomen inspection was made that demonstrated no evidence of injury upon entry. Then placed our working ports the 1st 5 mm port high in the epigastrium and then 2 in the right upper quadrant. The gallbladder was grasped and retracted over the liver and grasped laterally by the fundus. The triangle of Calot was exposed. The triangle of calot was then skeletonized using hook electrocautery and demonstrated the cystic duct clearly entering the gallbladder the cystic artery and the liver and in the background. With the critical view of safety established the cystic duct was clipped twice proximally and once distally and then sharply divided and the cystic artery was taken in the same fashion. Next the gallbladder was removed from the liver bed using electric cautery. The liver bed was then inspected for hemostasis and this was achieved. The abdomen was irrigated with sterile saline and inspection was made that showed the clips in good position. The specimen was removed using Endo- Catch. The abdomen was desufflated. The the fascia of the umbilicus was closed with 0 Vicryl in a [id number] fashion. Skin incisions were irrigated and closed with my for Monocryl. The wounds were sealed with Dermabond. Patient emerged from general anesthesia was extubated and transferred to the postoperative care unit missed stable condition. The sponge and instrument count at the end of the operation was correct. Condition: stable Disposition: same day surgery
[2019-03-08] MEDS: fentaNYL 100 MCG/2 ML INJ 50 MCG IV ×2 (11:32→11:37)
[2019-03-08] MEDS: METOCLOPRAMIDE 10 MG/2 ML INJ IV (11:46)
[2019-03-08] MEDS: HYDROCODONE/ACET 5/325 TABLET 1 TAB PO (11:54)
[2019-03-08] MEDS: OXYCODONE/ACETAMINOPHEN 5/325 TABLET 1 TAB PO (12:43)
--- NOTE | 2019-03-08 12:43 | SUR.PHASEII ---
see emar for nausea and pain med (pain 6-7). States that nausea is improved after emre calvin. States that pain is more like 'pressure'' belly rounded, slightly firm. States that she has been having issues with constipation and feels that it may be a contributing factor. Spouse at bedside. No emesis or wretching. No drainage at sites.
--- NOTE | 2019-03-08 13:02 | SUR.PHASEII ---
states that nausea is improved from a 4 to a 2.
== END 2019-03-08 13:45 | disposition home or self-care (01) ==
PROVIDERS: PCP Anesthesiology Pain Medicine; Visit Provider Surgery
PROC: 0FT44ZZ Resection of Gallbladder, Percutaneous Endoscopic Approach (ICD-10-PCS; CPT 47562; principal; 2019-03-08 10:00)
DX: K81.1 Chronic cholecystitis (principal); E11.9 Type 2 diabetes mellitus without complications; I10 Essential (primary) hypertension; G47.33 Obstructive sleep apnea (adult) (pediatric); I49.5 Sick sinus syndrome; M79.7 Fibromyalgia; F32.9 Major depressive disorder, single episode, unspecified; F41.9 Anxiety disorder, unspecified; E66.01 Morbid (severe) obesity due to excess calories; Z68.41 Body mass index [BMI] 40.0-44.9, adult; Z79.4 Long term (current) use of insulin
CPT/HCPCS: 47562; 88304; J0330; J0690; J1100; J2405; J2704; J2765; J3010

== ENCOUNTER → 2019-04-05 15:13 | Outpatient (CLI) | payer MEDICARE, OTHER, SELFPAY ==
[2019-04-05 16:58] LABS: Add Manual Diff / Slide Review NO; Basophils Absolute Auto 0 /uL (0-100); Basophils Percent Auto 0.7 % (0-2); Eosinophils Absolute Auto 200 /uL (0-450); Hematocrit 36.7 % (36-46); Hemoglobin 11.9 g/dL (12.0-16.0); Lymphocytes Absolute Auto 1200 /uL (1100-4500); Lymphocytes Percent Auto 22.6 % (25-40); Mean Corpuscular HGB Conc 32.5 % (30-36); Mean Corpuscular Hemoglobin 27.8 PG (26-34); Mean Corpuscular Volume 85.5 fL (80-100); Monocytes Absolute Auto 400 /uL (0-900); Monocytes Percent Auto 7.6 % (3-14); Neutrophils Absolute Auto 3400 /uL (1500-7000); Neutrophils Percent Auto 66.1 % (50-75); Platelet Count 269 X10^3/uL (150-400); Red Blood Cell Count 4.29 X10^6/uL (4.0-5.2); Red Cell Distribution Width 15.2 % (11.6-14.8); White Blood Cell Count 5.2 X10^3/uL (4.5-11.0)
== END ==
PROVIDERS: PCP Anesthesiology Pain Medicine; Visit Provider Nurse Practitioner Family
DX: R71.0 Precipitous drop in hematocrit (principal)
CPT/HCPCS: 36415; 85025

== ENCOUNTER → 2019-08-10 14:06 | Outpatient (CLI) | payer MEDICARE, OTHER, SELFPAY ==
[2019-08-10 15:25] LABS: Alanine Aminotransferase 158 IU/L (<35); Albumin 4.2 g/dL (3.5-5.0); Albumin Globulin Ratio 1.6 (1.0-2.8); Alkaline Phosphatase 298 U/L (38-126); Aspartate Aminotransferase 196 IU/L (14-36); BUN Creatinine Ratio 23.3 (6-22); Bilirubin Total 0.4 mg/dL (0.2-1.3); Blood Urea Nitrogen 21 mg/dL (7-17); Calcium 9.6 mg/dL (8.4-10.2); Carbon Dioxide 25 mmol/L (22-32); Chloride 103 mmol/L (98-107); Cholesterol 173 mg/dL (140-199); Estimated Glomerular Filt Rate > 60.0 mL/min (>60); Globulin 2.7 g/dL (1.7-4.1); Glucose 108 mg/dL (80-110); HDL Cholesterol 94 mg/dL (40-60); HEMOLYSIS < 15 (0-50); LDL Cholesterol Calculated 53 mg/dL (<100); Potassium 4.3 mmol/L (3.4-5.1); Sodium 139 mmol/L (137-145); Total Protein 6.9 g/dL (6.3-8.2); Triglycerides 128 mg/dL (35-150)
[2019-08-10 16:48] LABS: Creatinine Urine Random 53.6 mg/dL
[2019-08-10 16:56] LABS: Microalbumi Creatinin Ratio Ur 11.1 ug/mg CR (<30); Microalbumin Urine Random < 0.6 mg/dL (0-1.6)
== END ==
PROVIDERS: PCP Anesthesiology Pain Medicine
DX: E11.65 Type 2 diabetes mellitus with hyperglycemia (principal); Z79.4 Long term (current) use of insulin
CPT/HCPCS: 36415; 80053; 80061; 82043; 82570

== ENCOUNTER → 2020-03-07 16:28 | Outpatient (CLI) | payer MEDICARE, OTHER, SELFPAY ==
[2020-03-07 17:38] LABS: Add Manual Diff / Slide Review NO; Basophils Absolute Auto 0 /uL (0-100); Basophils Percent Auto 0.3 % (0-2); Eosinophils Absolute Auto 100 /uL (0-450); Eosinophils Percent Auto 2.2 % (2-4); Hematocrit 38.9 % (36-46); Hemoglobin 13.5 g/dL (12.0-16.0); Lymphocytes Absolute Auto 1200 /uL (1100-4500); Lymphocytes Percent Auto 21.7 % (25-40); Mean Corpuscular HGB Conc 34.6 % (30-36); Mean Corpuscular Volume 89.4 fL (80-100); Monocytes Absolute Auto 400 /uL (0-900); Monocytes Percent Auto 6.9 % (3-14); Neutrophils Absolute Auto 3900 /uL (1500-7000); Neutrophils Percent Auto 68.9 % (50-75); Platelet Count 249 X10^3/uL (150-400); Red Blood Cell Count 4.35 X10^6/uL (4.0-5.2); Red Cell Distribution Width 13.2 % (11.6-14.8); White Blood Cell Count 5.7 X10^3/uL (4.5-11.0)
[2020-03-07 17:46] LABS: Hemoglobin A1C% w Est Avg Glu 7.3 % (4.0-6.0)
[2020-03-07 17:51] LABS: Alanine Aminotransferase 38 IU/L (<35); Albumin 3.7 g/dL (3.5-5.0); Albumin Globulin Ratio 1.7 (1.0-2.8); Alkaline Phosphatase 128 U/L (38-126); Aspartate Aminotransferase 34 IU/L (14-36); BUN Creatinine Ratio 20.8 (6-22); Bilirubin Total 0.4 mg/dL (0.2-1.3); Blood Urea Nitrogen 15 mg/dL (7-17); Calcium 8.9 mg/dL (8.4-10.2); Carbon Dioxide 24 mmol/L (22-32); Chloride 103 mmol/L (98-107); Estimated Glomerular Filt Rate > 60.0 mL/min (>60); Globulin 2.2 g/dL (1.7-4.1); Glucose 243 mg/dL (80-110); HEMOLYSIS < 15 (0-50); Potassium 4.2 mmol/L (3.4-5.1); Sodium 135 mmol/L (137-145); Total Protein 5.9 g/dL (6.3-8.2)
[2020-03-07 18:09] LABS: Free T3, Triiodothyronine Free 3.22 pg/mL (2.77-5.27); Free T4, Direct Thyroxine 1.13 ng/dL (0.78-2.19)
[2020-03-07 18:22] LABS: Thyroid Stimulating Hormone 0.503 uIU/mL (0.47-4.68)
[2020-03-08 07:09] LABS: Thyroid Peroxidase Antibodies <9 IU/mL (0-34)
[2020-03-08 16:39] LABS: Anti Thyroglobulin Antibody <1.0 IU/mL (0.0-0.9)
[2020-03-11 18:18] LABS: Triiodothyronine T3 Reverse 17.4 ng/dL (9.2-24.1)
== END ==
PROVIDERS: PCP Anesthesiology Pain Medicine; Referring Provider Anesthesiology Pain Medicine; Visit Provider Anesthesiology Pain Medicine
DX: E13.42 Other specified diabetes mellitus with diabetic polyneuropathy (principal); Z79.891 Long term (current) use of opiate analgesic; K59.04 Chronic idiopathic constipation; I15.0 Renovascular hypertension; F33.1 Major depressive disorder, recurrent, moderate; R53.82 Chronic fatigue, unspecified; L65.8 Other specified nonscarring hair loss
CPT/HCPCS: 36415; 80053; 83036; 84439; 84443; 84481; 84482; 85025; 86376; 86800

== ENCOUNTER → 2020-10-31 10:15 | Outpatient (CLI) | payer MEDICARE, OTHER, SELFPAY ==
[2020-10-31 11:19] LABS: COVID19 -Nasal RAPID Negative (Negative)
== END ==
PROVIDERS: PCP Anesthesiology Pain Medicine; Referring Provider Surgery; Visit Provider Surgery
DX: Z20.822 Contact with and (suspected) exposure to COVID-19 (principal); Z01.812 Encounter for preprocedural laboratory examination
CPT/HCPCS: 87635; C9803

== ENCOUNTER 2020-11-01 12:20 | Day surgery (SDC) | payer MEDICARE, OTHER, SELFPAY ==
--- NOTE | 2020-11-01 | PATH_ITS ---
[facility] Accession Number: [id number] . 01 Material submitted: . PART A: esophagus - GE JUNCTION PART B: colon - SIGMOID COLON POLYP PART C: rectum - RECTUM POLYP . 02 Diagnosis: A. Gastroesophageal Junction, Biopsy: Squamous mucosa with no diagnostic abnormality. Intraepithelial eosinophils are not increased. Negative for dysplasia and malignancy. . B. Sigmoid Colon, Polyp, Biopsy: Hyperplastic polyp. . C. Rectum, Polyp, Biopsy: Hyperplastic polyp. [facility] 11/06/2020 1327 Local . 02 Electronically signed: . Jill Ward MD, Pathologist NPI- [id number] . 01 Gross description: . Part A: GE JUNCTION: Received in formalin is 1 fragment(s) of alvarenga, soft tissue measuring 0.4 x 0.3 x 0.2 cm submitted entirely in 1 cassette(s) Part B: SIGMOID COLON POLYP: Received in formalin are 2 fragment(s) of alvarenga, soft tissue measuring 0.3 x 0.3 x 0.2 cm to .2 x 0.2 x 0.1 cm submitted entirely in 1 cassette(s) Part C: RECTUM POLYP: Received in formalin are 2 fragment(s) of alvarenga, soft tissue measuring 0.3 x 0.3 x 0.2 cm to 0.1 x 0.1 x 0.1 cm submitted entirely in 1 cassette(s) /[facility] 11/03/2020 1257 Local . 02 Pathologist provided ICD-10: K63.5 . 02 CPT . 304118, 326209, 640529 Performed at: [address], [place], [place] [id number] MD Kai Vega MD Phone: [phone] Performed at: 02 [facility] [address] [place] [id number] MD Jill Ward MD Phone: [phone]
[2020-11-01 13:26] VITALS: BMI 36.8
[2020-11-01 13:39] VITALS: BP 153/77; PULSE 80; RESP 12; TEMP 36.8; O2SAT 100
[2020-11-01] MEDS: LACTATED RINGERS 1,000 ML 200 ML IV (13:42)
[2020-11-01] MEDS: fentaNYL 250 MCG/5 ML INJ IV (14:23)
[2020-11-01] MEDS: MIDAZOLAM 5 MG/5 ML VIAL IV (14:23)
--- NOTE | 2020-11-01 14:49 | PM.OP.ENDO ---
Operative Date/Time/Diagnoses Date of procedure: 11/01/20 Time of procedure: 14:49 Pre-op diagnosis: Esophageal dysphagia, personal history of colonic polyps Post-op diagnosis: same Procedure & Clinicians Study performed: Esophagoduodenoscopy, colonoscopy Same procedure as scheduled: Yes Indications: Esophageal dysphagia, personal history of colonic polyps Surgeon: Ernie Lira Procedure Notes Procedure in detail: Medications: Conscious sedation using 9mg IV midazolam and 200mcg IV of fentanyl The history and physical was performed/updated and the patient is ASA class is 2. The procedure was discussed in detail with the patient. Potential risks complications including infection, bleeding, missed diagnosis, perforation, need for surgery, and were explained. Their questions were answered and informed consent was obtained. Patient placed in left lateral decubitus position. Time out was performed. Procedural sedation was administered with Versed and Fentanyl. A bite block was placed. the scope was inserted into the mouth and advanced through the esophagus and into the stomach. There was mild gastritis, no ulceration or active hemorrhage there was bile within the stomach. The pylorus was intubated and the duodenum was normal to the 2nd portion. The scope was retroflexed within the stomach and there was a moderate hiatal hernia. . The scope was withdrawn into the esophagus the Z line was seen at 40 cm from the incisions. There was possible Aguilera's esophagitis and biopsy of the GE junction was performed. there was no esophageal stricture. Stomach was desufflated and scope removed. Patient tolerated procedure well. Patient was brought to the procedure room and placed standard monitoring equipment. The patient's vital signs were monitored continuously throughout the entire procedure. Prior to starting time-out was performed. The patient was placed in the left lateral recumbent position. Procedural sedation was administered. Examination began with a thorough inspection of the perianal area there was no evidence of fissures, fistulae, external hemorrhoids or cutaneous malignancy. The colonoscopy scope was then placed into the anal canal and was advanced to the cecum, which was identified by the ileocecal valve, the appendiceal orifice and the confluence of the taenia. The scope was then slowly withdrawn examining colon thoroughly in all directions, irrigating it of any residual stool. 1. 5 mm polyp within the sigmoid colon removed with biopsy forceps 2. 2 mm polyp within the rectum removed with forceps The patient tolerated the procedure well. They will be discharged once criteria are met. The prep was of good/excellent quality. The withdrawl time was 11 minutes. The sedation time was 42 minutes. Specimen(s): other (GE junction, sigmoid, rectum) Complications: none Impression: Gastritis, esophagitis, colonic polyps Post-procedure Recommendations: Colonscopy in 5 years and Start medication(s) (omeprazole) Disposition: same day surgery
[2020-11-01 14:57] VITALS: BP 133/73; PULSE 82; RESP 18; O2SAT 100
[2020-11-01 15:02] VITALS: BP 132/77; PULSE 79; RESP 16; TEMP 37.1; O2SAT 99
[2020-11-01 15:10] VITALS: BP 137/85; PULSE 78; RESP 16; TEMP 37.2; O2SAT 100
== END 2020-11-01 15:20 | disposition home or self-care (01) ==
PROVIDERS: PCP Anesthesiology Pain Medicine; Referring Provider Anesthesiology Pain Medicine; Visit Provider Surgery
PROC: 0DJ08ZZ Inspection of Upper Intestinal Tract, Via Natural or Artificial Opening Endoscopic (ICD-10-PCS; CPT 43235; principal; 2020-11-01 13:45)
PROC: 0DJD8ZZ Inspection of Lower Intestinal Tract, Via Natural or Artificial Opening Endoscopic (ICD-10-PCS; CPT 45378; 2020-11-01 13:45)
DX: Z12.11 Encounter for screening for malignant neoplasm of colon (principal); Z86.010 Personal history of colon polyps; R13.10 Dysphagia, unspecified; E11.9 Type 2 diabetes mellitus without complications; Z79.4 Long term (current) use of insulin; E66.9 Obesity, unspecified; G47.33 Obstructive sleep apnea (adult) (pediatric); M79.7 Fibromyalgia; Z68.38 Body mass index [BMI] 38.0-38.9, adult; K63.5 Polyp of colon; K62.1 Rectal polyp
CPT/HCPCS: 45380; 43235; 99152; 99153; J2250; J3010

== ENCOUNTER → 2020-11-05 14:01 | Outpatient (CLI) | payer MEDICARE, OTHER, SELFPAY ==
--- NOTE | 2020-11-05 | DI.MG.S_ITS ---
BILATERAL DIGITAL DIAGNOSTIC MAMMOGRAM 3D/2D: 11/05/2020 CLINICAL: Right breast abcess. Comparison is made to exams dated: 03/28/2016 mammogram, 03/29/2012 mammogram, and 07/16/2010 mammogram - [facility]. The tissue of both breasts is heterogeneously dense. This may lower the sensitivity of mammography. No significant masses, calcifications, or other findings are seen in either breast. Specifically, no finding to explain the patient's palpable abnormality. Mammograms are otherwise stable. IMPRESSION: INCOMPLETE: NEEDS ADDITIONAL IMAGING EVALUATION There is no abnormality seen in the right breast to correspond with the palpable abnormality indicated by a circular marker in the lower outer quadrant. Ultrasound is recommended for full evaluation of this area. This was performed immediately following this exam. This exam was interpreted at Station ID: [id number]. NOTE: For mammograms, a report in lay terms will be sent to the patient. Approximately 15% of breast malignancies will not be visualized mammographically. In the management of a palpable breast mass, a negative mammogram must not discourage biopsy of a clinically suspicious lesion. Electronically Signed By: Trini martinez/:11/05/2020 15:02:26 ACR BI-RADS Category 0: Incomplete [id number]
--- NOTE | 2020-11-05 14:04 | DI.US.S_ITS ---
LIMITED ULTRASOUND OF RIGHT BREAST: 11/05/2020 CLINICAL: Palpable right breast lump. Comparison is made to exams dated: 11/05/2020 mammogram, 03/28/2016 mammogram, 03/29/2012 mammogram, 07/16/2010 mammogram - [facility], 07/02/2006 mammogram, and 08/08/2003 mammogram - [facility]. Color flow and real-time ultrasound of the right breast 9 o'clock region were performed. Gauthier scale images of the real-time examination were reviewed. There is a benign 0.8 cm x 0.3 cm oval flat fluid collection confined to the dermal layer of the right breast at 9 o'clock middle depth 7 cm from the nipple. This correlates as palpated. Color flow imaging demonstrates that there is vascularity present. No significant abnormalities were seen sonographically in the right breast tissue. IMPRESSION: BENIGN There is no sonographic evidence of malignancy. The 0.8 cm x 0.3 cm oval dermal fluid collection in the right breast is a sebaceous cyst or folliculitis and is benign. There is no drainable abscess in the right breast tissue. Return to annual mammogram screening schedule is recommended. Findings and recommendations were conveyed to the patient at time of exam. This exam was interpreted at Station ID: [id number]. Electronically Signed By: Trini martinez/:11/05/2020 17:01:36 letter sent: Normal Exam Ultrasound BI-RADS: 2 Benign
== END ==
PROVIDERS: PCP Anesthesiology Pain Medicine; Referring Provider Anesthesiology Pain Medicine; Visit Provider Anesthesiology Pain Medicine
DX: R92.8 Other abnormal and inconclusive findings on diagnostic imaging of breast (principal); N61.1 Abscess of the breast and nipple
CPT/HCPCS: 76642; 77066; G0279

== ENCOUNTER 2021-02-21 21:21 | Emergency (ER) | payer MEDICARE, OTHER, SELFPAY ==
[2021-02-21 21:35] VITALS: BP 152/74; PULSE 106; RESP 17; TEMP 37.2; O2SAT 99; BMI 38.9
[2021-02-21 21:39] VITALS: PULSE 96; O2SAT 98
[2021-02-21 22:00] VITALS: PULSE 96; O2SAT 97
[2021-02-21 22:08] LABS: Add Manual Diff / Slide Review NO; Basophils Absolute Auto 0 /uL (0-100); Basophils Percent Auto 0.2 % (0-2); Eosinophils Absolute Auto 100 /uL (0-450); Eosinophils Percent Auto 1.2 % (2-4); Hematocrit 40.2 % (36-46); Hemoglobin 13.8 g/dL (12.0-16.0); Lymphocytes Absolute Auto 1200 /uL (1100-4500); Lymphocytes Percent Auto 10.4 % (25-40); Mean Corpuscular HGB Conc 34.4 % (30-36); Mean Corpuscular Hemoglobin 30.5 PG (26-34); Mean Corpuscular Volume 88.6 fL (80-100); Monocytes Absolute Auto 900 /uL (0-900); Monocytes Percent Auto 7.7 % (3-14); Neutrophils Absolute Auto 9300 /uL (1500-7000); Neutrophils Percent Auto 80.5 % (50-75); Platelet Count 254 X10^3/uL (150-400); Red Blood Cell Count 4.54 X10^6/uL (4.0-5.2); Red Cell Distribution Width 13.2 % (11.6-14.8); White Blood Cell Count 11.6 X10^3/uL (4.5-11.0)
--- NOTE | 2021-02-21 22:14 | ED.ABDPAIN ---
HPI - Abdominal Pain <Mc GormanDO kenisha - Last Filed: 02/22/21 14:30> General Chief Complaint: Abdominal Pain Stated Complaint: abd pain Time Seen by Provider: 02/21/21 21:34 Source: patient Mode of arrival: Ambulatory Limitations: no limitations History of Present Illness HPI narrative: 66-year-old female nonsmoker with history of cholecystectomy, diabetes, pancreatitis presents with a chief complaint of a few days of gradually worsening epigastric and right upper quadrant pain that radiates to her back. It feels like the pancreatitis she has had in the past. She denies alcohol intake but 2 weeks ago started a new diabetic regimen (Ozempic). She states her pain seems to be worse when she eats or drinks. She has had nausea but denies any vomiting. She denies fever or chills. She feels a bit bloated and has been having relatively regular bowel movements. She denies dysuria, frequency or urgency. She states her pain is also worse when she moves and improves slightly with rest. Related Data Home Medications Medication Instructions Recorded Confirmed insulin lispro 100 unit/mL See Rx Instructions .ROUTE 03/14/17 11/01/20 subcutaneous pen (Humalog KwikPen .COMPLEX #0 (U-100) Insulin) Respirclipkits Dreamstation BIPAP #1 ea 11/03/18 10/03/20 amitriptyline 10 mg tablet 10 mg PO DAILY 02/21/19 11/01/20 escitalopram oxalate 20 mg tablet 20 mg PO DAILY 02/21/19 11/01/20 gabapentin 600 mg tablet 300 mg PO BEDTIME 02/21/19 11/01/20 tizanidine 4 mg tablet 8 mg PO BEDTIME 02/21/19 11/01/20 aspirin 227 mg-acetaminophen 194 1 tab PO Q4-6H PRN 03/08/19 11/01/20 mg-caffeine 33 mg tablet (Vanquish) hydrocodone 7.5 mg-acetaminophen 1 tab PO DAILY PRN tab 06/27/20 11/01/20 325 mg tablet metoprolol tartrate 25 mg tablet 25 mg PO DAILY tab 06/27/20 11/01/20 oxybutynin chloride 5 mg tablet 5 mg PO DAILY #0 tab 06/27/20 11/01/20 docusate sodium 250 mg capsule 500 mg PO DAILY 10/03/20 11/01/20 (Stool Softener) lactobacillus combination no.8 3 3,000 mmu cells PO DAILY 10/03/20 11/01/20 billion cell capsule (Adult Probiotic) magnesium 30 mg tablet 30 mg PO DAILY 10/03/20 11/01/20 milk thistle 150 mg capsule 150 mg PO BID 10/03/20 11/01/20 insulin glargine 100 unit/mL (3 30 unit SUBCUT BID 11/01/20 11/01/20 mL) subcutaneous pen (Lantus Solostar U-100 Insulin) lisinopril 40 mg tablet 40 mg PO DAILY 11/01/20 11/01/20 semaglutide (Ozempic) 0.25 mg SUBCUT QWEEK 02/21/21 02/21/21 Previous Rx's Medication Instructions Recorded oxycodone 5 mg capsule 5 mg PO Q4-6H PRN #30 cap 03/08/19 sodium,potassium,mag sulfates 17.5 177 ml PO DAILY #354 ml 10/03/20 gram-3.13 gram-1.6 gram oral soln pantoprazole 20 mg tablet,delayed 20 mg PO DAILY #90 tab 11/01/20 release (Protonix) hyoscyamine sulfate 0.125 mg tablet 0.125 mg PO BID-QID PRN #14 tab 02/22/21 Allergies Allergy/AdvReac Type Severity Reaction Status Date / Time erythromycin base Allergy Severe liver Verified 10/03/20 14:18 problems metformin Allergy Unknown pancreatiti Verified 10/03/20 14:18 s Review of Systems <Mc Bella, - Last Filed: 02/22/21 14:30> Review of Systems Narrative: GENERAL: Denies chills, fatigue, malaise, fever, sweats. HEENT: Denies sinus pain, ear pain, sore throat, difficulty swallowing, dizziness. RESPIRATORY: Denies dyspnea, cough, wheezing, hemoptysis, sputum. CARDIOVASCULAR: Denies chest pain, palpitations, orthopnea, edema, GASTROINTESTINAL: See HPI : Denies dysuria, frequency, incontinence, hematuria, urinary retention. MUSCULOSKELETAL: denies weakness, joint pain, or bony pain SKIN: Denies rash, skin lesions, or other NEUROLOGIC: Denies weakness, headache, numbness, change in speech, confusion, seizures, incoordination. PSYCHIATRIC: No concerning psychosocial issues. 12 point review of systems is negative except for those stated above Patient History <Mc Bella DO - Last Filed: 02/22/21 14:30> Medical History Anxiety and depression Central sleep apnea (~2006) Erosion of suburethral sling Fibromyalgia syndrome First degree AV block Hypertension Insulin dependent diabetes mellitus Morbid obesity Obesity (BMI 30-39.9) Obstructive sleep apnea of adult (~2006) Pancreatitis Sick sinus syndrome Surgical History History of bladder surgery History of colonoscopy with polypectomy (05/25/14) History of colonoscopy with polypectomy (10/08/17) History of esophagogastroduodenoscopy (EGD) (05/25/14) History of esophagogastroduodenoscopy (EGD) (12/20/15) History of esophagogastroduodenoscopy (EGD) (10/08/17) History of hysteroscopy (10/10/09) History of lumbosacral spine surgery (10/2012) History of neck surgery (08/2012) S/P laparoscopic supracervical hysterectomy Family History Father TIA (transient ischemic attack) Grandfather Blood clot in vein Grandmother Stroke Mother Chronic back pain Grandfather Alzheimer's disease Grandmother MVA (motor vehicle accident) Brother Chronic back pain Sister No problems noted. Social History marital status: details: junaid Perez, lives in [place] household members: spouse lives independently: Yes caregiver/support person: No housing: house Smoking Status: Never smoker alcohol intake: current Smoking Status: Never smoker alcohol intake frequency: a few times a month Substance Use Type: does not use Exam <Mc Bella DO - Last Filed: 02/22/21 14:30> Narrative Exam Narrative: GENERAL: [66] year old patient appears stated age. Well-developed patient, in mild distress. HEAD: Atraumatic. Normocephalic. EYES: Pupils equal round and reactive. Extraocular motions intact. No scleral icterus. No injection or drainage. ENT: Nose without bleeding, purulent drainage. Throat without erythema, tonsillar hypertrophy or exudate. Airway patent. NECK: Trachea midline. Non tender CARDIOVASCULAR: Regular rate and rhythm without murmurs, gallops, or rubs. RESPIRATORY: Clear to auscultation. Breath sounds equal bilaterally. No wheezes, rales, or rhonchi. GASTROINTESTINAL: Abdomen soft, bloated, bowel sounds present all 4 quadrants, tender to palpation and right upper quadrant EXTREMITIES: No edema or joint tenderness. BACK: Nontender without deformity or crepitance. No flank tenderness. NEURO: AOx3. SKIN: No rash or erythema of visible areas Initial Vital Signs Initial Vital Signs: Vital Signs Temperature 98.9 F 02/21/21 21:35 Pulse Rate 106 H 02/21/21 21:35 Respiratory Rate 17 02/21/21 21:35 Blood Pressure 152/74 H 02/21/21 21:35 Pulse Oximetry 99 02/21/21 21:35 <Beth Yadav DO - Last Filed: 02/22/21 22:59> Initial Vital Signs Initial Vital Signs: Vital Signs Temperature 98.9 F 02/21/21 21:35 Pulse Rate 106 H 02/21/21 21:35 Respiratory Rate 17 02/21/21 21:35 Blood Pressure 152/74 H 02/21/21 21:35 Pulse Oximetry 99 02/21/21 21:35 Course <Mc Bella DO - Last Filed: 02/22/21 14:30> Orders Ordered: Discontinued Medications Hydromorphone HCl (Hydromorphone 0.5 Mg Inj) 0.5 mg IV NOW ONE Stop: 02/21/21 22:29 Last Admin: 02/21/21 22:34 Dose: 0.5 mg Documented by: ADAN Hydromorphone HCl (Hydromorphone 0.5 Mg Inj) 0.5 mg IV NOW ONE Stop: 02/22/21 00:33 Last Admin: 02/22/21 00:45 Dose: 0.5 mg Documented by: ADAN Hydromorphone HCl (Hydromorphone 0.5 Mg Inj) 0.5 mg IV NOW ONE Stop: 02/22/21 06:03 Last Admin: 02/22/21 06:12 Dose: 0.5 mg Documented by: DBROYLE Hydromorphone HCl (Hydromorphone 0.5 Mg Inj) 0.5 mg IV NOW ONE Stop: 02/22/21 08:33 Last Admin: 02/22/21 08:51 Dose: 0.5 mg Documented by: SANA Sodium Chloride (Normal Saline 0.9%) 1,000 mls @ 1,000 mls/hr IV BOLUS ONE Stop: 02/21/21 23:27 Last Infusion: 02/22/21 02:39 Dose: 0 mls/hr Documented by: Admin: 02/21/21 22:34 Dose: 1,000 mls/hr Documented by: ADAN Sodium Chloride (Normal Saline 0.9%) 1,000 mls @ 125 mls/hr IV CONT STAN Last Infusion: 02/22/21 09:13 Dose: 0 mls/hr Documented by: Admin: 02/22/21 02:51 Dose: 125 mls/hr Documented by: ADAN Metoclopramide HCl (Metoclopramide 10 Mg/2 Ml Inj) 10 mg IV NOW ONE Stop: 02/22/21 02:46 Last Admin: 02/22/21 02:49 Dose: 10 mg Documented by: ADAN Ondansetron HCl (Ondansetron 4 Mg/2 Ml Inj) 4 mg IV NOW ONE Stop: 02/21/21 22:29 Last Admin: 02/21/21 22:34 Dose: 4 mg Documented by: ADAN Ondansetron HCl (Ondansetron 4 Mg/2 Ml Inj) 4 mg IV NOW ONE Stop: 02/22/21 00:33 Last Admin: 02/22/21 00:45 Dose: 4 mg Documented by: ADAN Vital Signs Vital signs: Vital Signs - 8 hr 02/22/21 06:30 02/22/21 07:00 02/22/21 08:48 Pulse Rate 98 H 95 H 95 H Respiratory Rate 18 Blood Pressure 143/75 H 147/73 H Pulse Oximetry 94 97 96 02/22/21 09:00 Pulse Rate 91 H Respiratory Rate 18 Blood Pressure 140/56 L Pulse Oximetry 95 <Beth Yadav DO - Last Filed: 02/22/21 22:59> Orders Ordered: Discontinued Medications Hydromorphone HCl (Hydromorphone 0.5 Mg Inj) 0.5 mg IV NOW ONE Stop: 02/21/21 22:29 Last Admin: 02/21/21 22:34 Dose: 0.5 mg Documented by: ADAN Hydromorphone HCl (Hydromorphone 0.5 Mg Inj) 0.5 mg IV NOW ONE Stop: 02/22/21 00:33 Last Admin: 02/22/21 00:45 Dose: 0.5 mg Documented by: ADAN Hydromorphone HCl (Hydromorphone 0.5 Mg Inj) 0.5 mg IV NOW ONE Stop: 02/22/21 06:03 Last Admin: 02/22/21 06:12 Dose: 0.5 mg Documented by: AMBROCIO Hydromorphone HCl (Hydromorphone 0.5 Mg Inj) 0.5 mg IV NOW ONE Stop: 02/22/21 08:33 Last Admin: 02/22/21 08:51 Dose: 0.5 mg Documented by: SANA Sodium Chloride (Normal Saline 0.9%) 1,000 mls @ 1,000 mls/hr IV BOLUS ONE Stop: 02/21/21 23:27 Last Infusion: 02/22/21 02:39 Dose: 0 mls/hr Documented by: Admin: 02/21/21 22:34 Dose: 1,000 mls/hr Documented by: ADAN Sodium Chloride (Normal Saline 0.9%) 1,000 mls @ 125 mls/hr IV CONT STAN Last Infusion: 02/22/21 09:13 Dose: 0 mls/hr Documented by: Admin: 02/22/21 02:51 Dose: 125 mls/hr Documented by: ADAN Metoclopramide HCl (Metoclopramide 10 Mg/2 Ml Inj) 10 mg IV NOW ONE Stop: 02/22/21 02:46 Last Admin: 02/22/21 02:49 Dose: 10 mg Documented by: ADAN Ondansetron HCl (Ondansetron 4 Mg/2 Ml Inj) 4 mg IV NOW ONE Stop: 02/21/21 22:29 Last Admin: 02/21/21 22:34 Dose: 4 mg Documented by: ADAN Ondansetron HCl (Ondansetron 4 Mg/2 Ml Inj) 4 mg IV NOW ONE Stop: 02/22/21 00:33 Last Admin: 02/22/21 00:45 Dose: 4 mg Documented by: ADAN Reevaluation(s) Reevaluation #1: Patient seen and evaluated by myself. Patient's HPI and exam was reviewed. Abdominal exam is reassuring at this time. Patient's abdominal pain is slowly starting to increase again so additional dose of pain medication was ordered. She has been for MRCP which is currently pending and has not resulted yet. Patient's vitals and labs were reviewed and her AST, ALT and alk-phos are elevated but bilirubin and lipase are normal. Patient has had elevations in the past but they are slightly more elevated today. At the head of the pancreas, portion the duodenum and distal bile duct for periduodenal pancreatitis. Time: 08:33 Reevaluation #2: Patient MRCP and surgery recommendations discussed. Patient does not have any change in her lipase but I do recommend treating her like a pancreatitis with clear liquid diet. Patient has oral pain medications at home. She did ask for prescription high ostomy. And referral to Gastroenterology which was provided. Vital Signs Vital signs: Vital Signs - 8 hr 02/22/21 06:30 02/22/21 07:00 02/22/21 08:48 Pulse Rate 98 H 95 H 95 H Respiratory Rate 18 Blood Pressure 143/75 H 147/73 H Pulse Oximetry 94 97 96 02/22/21 09:00 Pulse Rate 91 H Respiratory Rate 18 Blood Pressure 140/56 L Pulse Oximetry 95 MDM - Abdominal Pain <Mc Bella DO - Last Filed: 02/22/21 14:30> Lab Data Result diagrams: 02/22/21 05:55 02/22/21 05:55 Labs: Lab Results 02/21/21 02/21/21 02/22/21 Range/Units 10:00 10:00 00:40 WBC 11.6 H (4.5-11.0) X10^3/uL RBC 4.54 (4.0-5.2) X10^6/uL Hgb 13.8 (12.0-16.0) g/dL Hct 40.2 (36-46) % MCV 88.6 (80-100) fL MCH 30.5 (26-34) PG MCHC 34.4 (30-36) % RDW 13.2 (11.6-14.8) % Plt Count 254 (150-400) X10^3/uL Neut % (Auto) 80.5 H (50-75) % Lymph % (Auto) 10.4 L (25-40) % [place] % (Auto) 7.7 (3-14) % Eos % (Auto) 1.2 L (2-4) % Baso % (Auto) 0.2 (0-2) % Neut # (Auto) 9300 H (8822-4540) /uL Lymph # (Auto) 1200 (1899-5989) /uL [place] # (Auto) 900 (0-900) /uL Eos # (Auto) 100 (0-450) /uL Baso # (Auto) 0 (0-100) /uL Sodium 136 L (137-145) mmol/L Potassium 4.0 (3.4-5.1) mmol/L Chloride 102 (98-107) mmol/L Carbon Dioxide 26 (22-32) mmol/L BUN 12 (7-17) mg/dL Creatinine 0.66 (0.52-1.04) mg/dL Estimated GFR > 60.0 (>60) mL/min BUN/Creatinine Ratio 18.2 (6-22) Glucose 193 H (80-110) mg/dL Calcium 9.3 (8.4-10.2) mg/dL Total Bilirubin 0.5 (0.2-1.3) mg/dL AST 65 H (14-36) IU/L ALT 136 H (<35) IU/L Alkaline Phosphatase 231 H (38-126) U/L Total Protein 7.0 (6.3-8.2) g/dL Albumin 4.0 (3.5-5.0) g/dL Globulin 3.0 (1.7-4.1) g/dL Albumin/Globulin Ratio 1.3 (1.0-2.8) Lipase 189 (23-300) U/L SARS-CoV-2 (PCR) Negative (Negative) 02/22/21 02/22/21 Range/Units 05:55 05:55 WBC 9.1 (4.5-11.0) X10^3/uL RBC 4.28 (4.0-5.2) X10^6/uL Hgb 13.0 (12.0-16.0) g/dL Hct 38.7 (36-46) % MCV 90.5 (80-100) fL MCH 30.3 (26-34) PG MCHC 33.4 (30-36) % RDW 13.1 (11.6-14.8) % Plt Count 214 (150-400) X10^3/uL Neut % (Auto) 74.3 (50-75) % Lymph % (Auto) 14.3 L (25-40) % [place] % (Auto) 9.7 (3-14) % Eos % (Auto) 1.3 L (2-4) % Baso % (Auto) 0.4 (0-2) % Neut # (Auto) 6700 (3743-8728) /uL Lymph # (Auto) 1300 (4742-2191) /uL [place] # (Auto) 900 (0-900) /uL Eos # (Auto) 100 (0-450) /uL Baso # (Auto) 0 (0-100) /uL Sodium 138 (137-145) mmol/L Potassium 4.0 (3.4-5.1) mmol/L Chloride 107 (98-107) mmol/L Carbon Dioxide 25 (22-32) mmol/L BUN 9 (7-17) mg/dL Creatinine 0.59 (0.52-1.04) mg/dL Estimated GFR > 60.0 (>60) mL/min BUN/Creatinine Ratio 15.3 (6-22) Glucose 154 H (80-110) mg/dL Calcium 8.9 (8.4-10.2) mg/dL Total Bilirubin 0.6 (0.2-1.3) mg/dL AST 92 H (14-36) IU/L ALT 141 H (<35) IU/L Alkaline Phosphatase 229 H (38-126) U/L Total Protein 6.5 (6.3-8.2) g/dL Albumin 3.6 (3.5-5.0) g/dL Globulin 2.9 (1.7-4.1) g/dL Albumin/Globulin Ratio 1.2 (1.0-2.8) Lipase (23-300) U/L SARS-CoV-2 (PCR) (Negative) Point of care testing: Urine Dip Bedside Urine Glucose Negative Bedside Urine Bilirubin - Negative Bedside Urine Ketone - Negative Urine Specific [place] 1.010 Bedside Urine Occult Blood - Negative Bedside Urine pH 6.0 Bedside Urine Protein - Negative Bedside Urine Urobilinogen - Negative Bedside Urine Nitrite - Negative Bedside Urine Leukocytes - Negative Esterase Imaging Data US - abdomen: Radiologist's Impression: Post cholecystectomy. Dilated common bile duct, consider MRCP CT scan - abdomen/pelvis: Radiologist's Impression: Focal inflammatory process in the region of the head of the pancreas and duodenal sweep with a dilated common bile duct. Post cholecystectomy. Mild intrahepatic ductal dilatation. MRI MRCP of abdomen with and without IV contrast is recommended to exclude gallstone pancreatitis. MDM Narrative Medical decision making narrative: Extensive discussion with the patient regarding potential diagnoses. Multiple calls to various facilities without bed availability including: [facility] ([place] [place] , [facility] ([place], [place]). Will continue to treat pain and nausea, MRCP ordered <Beth Yadav, - Last Filed: 02/22/21 22:59> Lab Data Labs: Lab Results 02/21/21 02/21/21 02/22/21 Range/Units 10:00 10:00 00:40 WBC 11.6 H (4.5-11.0) X10^3/uL RBC 4.54 (4.0-5.2) X10^6/uL Hgb 13.8 (12.0-16.0) g/dL Hct 40.2 (36-46) % MCV 88.6 (80-100) fL MCH 30.5 (26-34) PG MCHC 34.4 (30-36) % RDW 13.2 (11.6-14.8) % Plt Count 254 (150-400) X10^3/uL Neut % (Auto) 80.5 H (50-75) % Lymph % (Auto) 10.4 L (25-40) % [place] % (Auto) 7.7 (3-14) % Eos % (Auto) 1.2 L (2-4) % Baso % (Auto) 0.2 (0-2) % Neut # (Auto) 9300 H (2255-1890) /uL Lymph # (Auto) 1200 (0907-8451) /uL [place] # (Auto) 900 (0-900) /uL Eos # (Auto) 100 (0-450) /uL Baso # (Auto) 0 (0-100) /uL Sodium 136 L (137-145) mmol/L Potassium 4.0 (3.4-5.1) mmol/L Chloride 102 (98-107) mmol/L Carbon Dioxide 26 (22-32) mmol/L BUN 12 (7-17) mg/dL Creatinine 0.66 (0.52-1.04) mg/dL Estimated GFR > 60.0 (>60) mL/min BUN/Creatinine Ratio 18.2 (6-22) Glucose 193 H (80-110) mg/dL Calcium 9.3 (8.4-10.2) mg/dL Total Bilirubin 0.5 (0.2-1.3) mg/dL AST 65 H (14-36) IU/L ALT 136 H (<35) IU/L Alkaline Phosphatase 231 H (38-126) U/L Total Protein 7.0 (6.3-8.2) g/dL Albumin 4.0 (3.5-5.0) g/dL Globulin 3.0 (1.7-4.1) g/dL Albumin/Globulin Ratio 1.3 (1.0-2.8) Lipase 189 (23-300) U/L SARS-CoV-2 (PCR) Negative (Negative) 02/22/21 02/22/21 Range/Units 05:55 05:55 WBC 9.1 (4.5-11.0) X10^3/uL RBC 4.28 (4.0-5.2) X10^6/uL Hgb 13.0 (12.0-16.0) g/dL Hct 38.7 (36-46) % MCV 90.5 (80-100) fL MCH 30.3 (26-34) PG MCHC 33.4 (30-36) % RDW 13.1 (11.6-14.8) % Plt Count 214 (150-400) X10^3/uL Neut % (Auto) 74.3 (50-75) % Lymph % (Auto) 14.3 L (25-40) % [place] % (Auto) 9.7 (3-14) % Eos % (Auto) 1.3 L (2-4) % Baso % (Auto) 0.4 (0-2) % Neut # (Auto) 6700 (5279-0499) /uL Lymph # (Auto) 1300 (0996-4173) /uL [place] # (Auto) 900 (0-900) /uL Eos # (Auto) 100 (0-450) /uL Baso # (Auto) 0 (0-100) /uL Sodium 138 (137-145) mmol/L Potassium 4.0 (3.4-5.1) mmol/L Chloride 107 (98-107) mmol/L Carbon Dioxide 25 (22-32) mmol/L BUN 9 (7-17) mg/dL Creatinine 0.59 (0.52-1.04) mg/dL Estimated GFR > 60.0 (>60) mL/min BUN/Creatinine Ratio 15.3 (6-22) Glucose 154 H (80-110) mg/dL Calcium 8.9 (8.4-10.2) mg/dL Total Bilirubin 0.6 (0.2-1.3) mg/dL AST 92 H (14-36) IU/L ALT 141 H (<35) IU/L Alkaline Phosphatase 229 H (38-126) U/L Total Protein 6.5 (6.3-8.2) g/dL Albumin 3.6 (3.5-5.0) g/dL Globulin 2.9 (1.7-4.1) g/dL Albumin/Globulin Ratio 1.2 (1.0-2.8) Lipase (23-300) U/L SARS-CoV-2 (PCR) (Negative) Point of care testing: Urine Dip Bedside Urine Glucose Negative Bedside Urine Bilirubin - Negative Bedside Urine Ketone - Negative Urine Specific [place] 1.010 Bedside Urine Occult Blood - Negative Bedside Urine pH 6.0 Bedside Urine Protein - Negative Bedside Urine Urobilinogen - Negative Bedside Urine Nitrite - Negative Bedside Urine Leukocytes - Negative Esterase Imaging Data MCRP: Radiologist's Impression: [address] [id number] Resonance ReportSigned Patient: Emily Payan LMR#: [id number]: 4Acct:[id number]/Sex: 66 / FDate of Service: 02/22/21Loc: EDAccession Number: [id number] Procedure: MR abdomen wo con Ordering Provider: Mc Bella D.O. PROCEDURE: MR ABDOMEN WO CON INDICATIONS: pancreatitis, dilated CBD TECHNIQUE: Coronal HASTE through the abdomen, axial 2-D FLASH in- and uur-cb-bppbs, and breath-hold T2 FSE with fat saturation through the biliary system and pancreas. Oblique coronal and axial thin-slice HASTE, radial thick-slab HASTE centered on the extrahepatic bile ducts. COMPARISON: [facility], CT, CT ABDOMEN PELVIS W CON, 02/21/2019, 18:54. [facility], CT, CT ABDOMEN PELVIS W CON, 02/21/2021, 23:13. FINDINGS: Image quality: Excellent. Pancreas and biliary system: The CBD is at the upper limits of normal measuring 0.8 cm, (3/18). The CBD tapers distally. No filling defect is seen. The left intrahepatic bile duct is mildly prominent measuring 0.5 cm, (3/17). Post cholecystectomy. The pancreas is atrophic. There is minimal prominence of the pancreatic duct in the head measuring approximately 0.4 cm. The other portions of the pancreatic duct are within normal limits. There may be minimal edema signal near the 3rd portion the duodenum. No peripancreatic fluid collection. No pancreatic cystic lesion. No obvious mass. Other solid organs: Liver is normal in size. Hepatic steatosis. Spleen is within normal limits in size. No adrenal nodules. Both kidneys are normal in size, without hydronephrosis. Nodes and vessels: No retroperitoneal or mesenteric adenopathy by size criteria. Aorta and inferior vena cava are normal in size. Bowel and peritoneum: Unenhanced bowel loops are normal in caliber. No free fluid. Lung bases: No basal pleural effusions. Heart size is normal. Small hiatal hernia. Bones and soft tissues: No ventral hernias. Bone marrow is of normal overall signal. IMPRESSION: 1. Minimal edema signal suggested near the 3rd portion the duodenum. This could be seen in pancreatitis or duodenitis. Recommend clinical correlation and correlation with lipase. 2. Pancreatic atrophy. 3. Minimal prominence of the pancreatic duct in the head of the pancreas. Minimal prominence of the left intrahepatic bile duct. The CBD is at the upper limits of normal in this post cholecystectomy patient. Dictated by: Carmelo Mullen M.D. on 02/22/2021 at 8:27 Approved by: Carmelo Mullen M.D. on 02/22/2021 at 8:39 MDM Narrative Medical decision making narrative: Extensive discussion with the patient regarding potential diagnoses. Multiple calls to various facilities without bed availability including: [facility] ([place]), [place] , [facility] ([place], [place]). Will continue to treat pain and nausea, MRCP ordered. Patient is signed out to myself by Dr. Bella. Patient's labs, imaging including ultrasound and CT were reviewed. Patient continued to have some pain to had an additional dose of pain medication here. Were able to obtain MRCP which shows some swelling/edema but no obstruction, no choledocholithiasis. Formal report shows some pancreatic atrophy, possible pancreatitis/duodenitis. Patient's lipase does not support a pancreatitis diagnosis at this time but after discussion she has recently been started on medication that could potentially cause her symptoms and plan is to stop this and have her re-consult with her photovoltaic testing technician to evaluate for further plan. We also discussed follow-up with gastroenterology she has had chronic issues and elevated liver enzymes and has even had a liver biopsy in the past which showed fatty liver but no other changes. Patient feels comfortable with this plan. She has narcotic pain medication at home but does ask for a refill of hyoscyamine which she has found quite helpful. Return precautions discussed. All questions answered. Discharge Plan Departure Patient Disposition: Home Clinical Impression: Abdominal pain Instructions: DI for Abdominal Pain-Adult Activity Restrictions/Additional Instructions: Follow-up with your physician for recheck. Below is included referral to Gastroenterology. Your labs do not reflect a pancreatitis but you do have some edema the 3rd portion the duodenum and this could possibly be a pancreatitis or duodenitis. There is also some minimal prominence at the pancreatic duct head of the pancreas in the left intrahepatic duct. There are no stones or blockages appreciated. And some there is some atrophy of the pancreas itself. I would follow-up with your your physician to have your liver enzymes rechecked. I would recommend stopping your metformin if this caused pancreatitis in the past. Discussed with your photovoltaic testing technician about what might be the best choice for medications. Prescription sent to [facility] in [place]. Please return for fevers, new or worsening chest pain, shortness of breath, abdominal pain, persistent vomiting, black or bloody stools, lightheadedness or passing out or other new or concerning symptoms. Prescriptions: Continued hyoscyamine sulfate 0.125 mg tablet 0.125 mg PO BID-QID PRN (Reason: Stomach Upset) Qty: 14 RF: 0 No Action insulin lispro [Humalog KwikPen Insulin] 100 UNIT/1 ML insulin pen See Rx Instructions .ROUTE .COMPLEX Qty: 0 RF: 0 oxybutynin chloride 5 mg tablet 5 mg PO DAILY Qty: 0 RF: 0 sodium,potassium,mag sulfates 17.5-3.13-1.6 gram recon soln 177 ml PO DAILY Qty: 354 RF: 0 milk thistle 150 mg capsule 150 mg PO BID RF: 0 docusate sodium [Stool Softener] 250 mg capsule 500 mg PO DAILY RF: 0 Adult Probiotic 3 billion cell capsule 3,000 mmu cells PO DAILY RF: 0 magnesium 30 mg tablet 30 mg PO DAILY RF: 0 gabapentin 600 mg tablet 300 mg PO BEDTIME RF: 0 tizanidine 4 mg tablet 8 mg PO BEDTIME RF: 0 amitriptyline 10 mg tablet 10 mg PO DAILY RF: 0 escitalopram oxalate 20 mg tablet 20 mg PO DAILY RF: 0 hydrocodone-acetaminophen 7.5-325 mg tablet 1 tab PO DAILY PRN (Reason: Pain (Scale Score 1-3)) RF: 0 metoprolol tartrate 25 mg tablet 25 mg PO DAILY RF: 0 [place] [id number] mg Tablet 1 tab PO Q4-6H PRN (Reason: Pain (Scale Score 1-3)) RF: 0 oxycodone 5 mg capsule 5 mg PO Q4-6H PRN (Reason: pain) Qty: 30 RF: 0 Ozempic 0.25 mg or 0.5 mg(2 mg/1.5 mL) Pen Injector 0.25 mg SUBCUT QWEEK RF: 0 lisinopril 40 mg tablet 40 mg PO DAILY RF: 0 Lantus Solostar U-100 Insulin 100 unit/mL (3 mL) insulin pen 30 unit SUBCUT BID RF: 0 pantoprazole [Protonix] 20 mg tablet,delayed release (DR/EC) 20 mg PO DAILY Qty: 90 RF: 0 (DME) Respironics Dreamstation BIPAP Qty: 1 RF: 0 Referrals: Cyn Banuelos MD [Primary Care Provider] - Lesley Escobar MD [Physician] -
[2021-02-21 22:18] LABS: Alanine Aminotransferase 136 IU/L (<35); Albumin Globulin Ratio 1.3 (1.0-2.8); Alkaline Phosphatase 231 U/L (38-126); Aspartate Aminotransferase 65 IU/L (14-36); BUN Creatinine Ratio 18.2 (6-22); Bilirubin Total 0.5 mg/dL (0.2-1.3); Blood Urea Nitrogen 12 mg/dL (7-17); Calcium 9.3 mg/dL (8.4-10.2); Carbon Dioxide 26 mmol/L (22-32); Chloride 102 mmol/L (98-107); Estimated Glomerular Filt Rate > 60.0 mL/min (>60); Glucose 193 mg/dL (80-110); HEMOLYSIS 18 (0-50); Lipase 189 U/L (23-300); Sodium 136 mmol/L (137-145)
--- NOTE | 2021-02-21 22:23 | DI.US.S_ITS ---
PROCEDURE: US ABDOMEN LIMITED INDICATIONS: abdominal pain TECHNIQUE: Real-time focused scanning was performed of the abdomen, with image documentation. COMPARISON: None. FINDINGS: Liver is at the upper limits of normal measuring 19.1 centimeters in long axis. Liver is diffusely echogenic. No focal hepatic mass lesions. Gallbladder is surgically absent. Common bile duct the upper limits of normal measuring 9.8 millimeters. Pancreas not visualized due to bowel gas. IMPRESSION: 1. Status post cholecystectomy. Common bile duct the upper limits of normal in caliber likely related to prior cholecystectomy. If there is clinical concern for biliary obstruction, recommend correlation with laboratory data and MRCP if indicated. 2. Echogenic liver. Finding typically represents fatty infiltration; however, finding is nonspecific and correlation with clinical and laboratory findings is recommended to exclude other etiologies including hepatic cirrhosis. Dictated by: Mikki Koch MD, PhD on 02/22/2021 at 8:57 Approved by: Mikki Koch MD, PhD on 02/22/2021 at 8:58
[2021-02-21 22:30] VITALS: PULSE 93; O2SAT 96
[2021-02-21] MEDS: SODIUM CHLORIDE 0.9% 1,000 ML 1000 ML IV (22:34)
[2021-02-21] MEDS: ONDANSETRON 4 MG/2 ML INJ IV (22:34)
[2021-02-21] MEDS: HYDROMORPHONE 0.5 MG INJ IV (22:34)
[2021-02-21 22:42] VITALS: BP 150/67; PULSE 100; O2SAT 96
[2021-02-21 23:00] VITALS: BP 143/66; PULSE 93; O2SAT 96
--- NOTE | 2021-02-21 23:10 | DI.CT.S_ITS ---
PROCEDURE: CT ABDOMEN PELVIS W CON INDICATIONS: severe right upper quadrant pain TECHNIQUE: After the administration of intravenous contrast, axial sections acquired from the lung bases to the pubic symphysis. Coronal and sagittal reformats were performed. For radiation dose reduction, the following was used: automated exposure control, adjustment of mA and/or kV according to patient size. COMPARISON: [facility], , US ABDOMEN LIMITED, 02/21/2021, 23:05. FINDINGS: Image quality: Excellent. Lung bases: Unremarkable. Heart: No significant findings. ABDOMEN: Liver: Unremarkable. Gallbladder: Surgically absent Biliary ducts: Mild prominence of the intra and extrahepatic biliary tree likely related to prior cholecystectomy. Pancreas: Mild inflammatory changes noted adjacent to the pancreatic head and 2nd portion of duodenum may be related to groove/periduodenal pancreatitis; recommend correlation with clinical and laboratory data. Spleen: Unremarkable. Adrenal Glands: Unremarkable. Kidneys and Ureters: Unremarkable. Stomach and Bowel: Stomach, small bowel loops, and colon are unremarkable. Small hiatal hernia is noted. Appendix is not identified and may be surgically absent. No secondary changes of appendicitis identified adjacent to the cecum. Peritoneum: No abnormal intraperitoneal fluid. No free air. Ventral Wall: No hernias. Abdominal Nodes: No retroperitoneal or mesenteric adenopathy by size criteria. Vessels: Aorta and inferior vena cava are normal in size. PELVIS: Pelvic Organs: Uterus is absent. Bladder: Unremarkable. Pelvic Nodes: No enlarged lymph nodes. Miscellaneous: No hernias are seen. Bones: Status post L4-L5 PLIF. Spine degenerative disc disease and facet arthropathy. IMPRESSION: 1. Status post cholecystectomy. 2. Mild inflammatory stranding adjacent to the head of the pancreas, the 2nd portion the duodenum and the distal common bile duct concerning for groove/periduodenal pancreatitis. Recommend correlation with clinical laboratory data. Dictated by: Mikki Koch MD, PhD on 02/22/2021 at 7:45 Approved by: Mikki Koch MD, PhD on 02/22/2021 at 7:54
[2021-02-22] VITALS (14 sets, daily range): BP systolic 133–151; BP diastolic 56–75; PULSE 86–102; RESP 18; O2SAT 91–97
--- NOTE | 2021-02-22 00:32 | DI.MRI.S_ITS ---
PROCEDURE: MR ABDOMEN WO CON INDICATIONS: pancreatitis, dilated CBD TECHNIQUE: Coronal HASTE through the abdomen, axial 2-D FLASH in- and [id number], and breath-hold T2 FSE with fat saturation through the biliary system and pancreas. Oblique coronal and axial thin-slice HASTE, radial thick-slab HASTE centered on the extrahepatic bile ducts. COMPARISON: [facility], CT, CT ABDOMEN PELVIS W CON, 02/21/2019, 18:54. [facility], CT, CT ABDOMEN PELVIS W CON, 02/21/2021, 23:13. FINDINGS: Image quality: Excellent. Pancreas and biliary system: The CBD is at the upper limits of normal measuring 0.8 cm, (3/18). The CBD tapers distally. No filling defect is seen. The left intrahepatic bile duct is mildly prominent measuring 0.5 cm, (3/17). Post cholecystectomy. The pancreas is atrophic. There is minimal prominence of the pancreatic duct in the head measuring approximately 0.4 cm. The other portions of the pancreatic duct are within normal limits. There may be minimal edema signal near the 3rd portion the duodenum. No peripancreatic fluid collection. No pancreatic cystic lesion. No obvious mass. Other solid organs: Liver is normal in size. Hepatic steatosis. Spleen is within normal limits in size. No adrenal nodules. Both kidneys are normal in size, without hydronephrosis. Nodes and vessels: No retroperitoneal or mesenteric adenopathy by size criteria. Aorta and inferior vena cava are normal in size. Bowel and peritoneum: Unenhanced bowel loops are normal in caliber. No free fluid. Lung bases: No basal pleural effusions. Heart size is normal. Small hiatal hernia. Bones and soft tissues: No ventral hernias. Bone marrow is of normal overall signal. IMPRESSION: 1. Minimal edema signal suggested near the 3rd portion the duodenum. This could be seen in pancreatitis or duodenitis. Recommend clinical correlation and correlation with lipase. 2. Pancreatic atrophy. 3. Minimal prominence of the pancreatic duct in the head of the pancreas. Minimal prominence of the left intrahepatic bile duct. The CBD is at the upper limits of normal in this post cholecystectomy patient. Dictated by: Carmelo Mullen M.D. on 02/22/2021 at 8:27 Approved by: Carmelo Mullen M.D. on 02/22/2021 at 8:39
[2021-02-22] MEDS: ONDANSETRON 4 MG/2 ML INJ IV (00:45)
[2021-02-22] MEDS: HYDROMORPHONE 0.5 MG INJ IV ×3 (00:45→08:51)
[2021-02-22 01:38] LABS: COVID19 - ADMIT (NP swab/PCR) Negative (Negative)
[2021-02-22] MEDS: METOCLOPRAMIDE 10 MG/2 ML INJ IV (02:49)
[2021-02-22] MEDS: SODIUM CHLORIDE 0.9% 1,000 ML 125 ML IV (02:51)
[2021-02-22 06:04] LABS: Add Manual Diff / Slide Review NO; Basophils Absolute Auto 0 /uL (0-100); Basophils Percent Auto 0.4 % (0-2); Eosinophils Absolute Auto 100 /uL (0-450); Eosinophils Percent Auto 1.3 % (2-4); Hematocrit 38.7 % (36-46); Lymphocytes Absolute Auto 1300 /uL (1100-4500); Lymphocytes Percent Auto 14.3 % (25-40); Mean Corpuscular HGB Conc 33.4 % (30-36); Mean Corpuscular Hemoglobin 30.3 PG (26-34); Mean Corpuscular Volume 90.5 fL (80-100); Monocytes Absolute Auto 900 /uL (0-900); Monocytes Percent Auto 9.7 % (3-14); Neutrophils Absolute Auto 6700 /uL (1500-7000); Neutrophils Percent Auto 74.3 % (50-75); Platelet Count 214 X10^3/uL (150-400); Red Blood Cell Count 4.28 X10^6/uL (4.0-5.2); Red Cell Distribution Width 13.1 % (11.6-14.8); White Blood Cell Count 9.1 X10^3/uL (4.5-11.0)
[2021-02-22 06:22] LABS: Alanine Aminotransferase 141 IU/L (<35); Albumin 3.6 g/dL (3.5-5.0); Albumin Globulin Ratio 1.2 (1.0-2.8); Alkaline Phosphatase 229 U/L (38-126); Aspartate Aminotransferase 92 IU/L (14-36); BUN Creatinine Ratio 15.3 (6-22); Bilirubin Total 0.6 mg/dL (0.2-1.3); Blood Urea Nitrogen 9 mg/dL (7-17); Calcium 8.9 mg/dL (8.4-10.2); Carbon Dioxide 25 mmol/L (22-32); Chloride 107 mmol/L (98-107); Estimated Glomerular Filt Rate > 60.0 mL/min (>60); Globulin 2.9 g/dL (1.7-4.1); Glucose 154 mg/dL (80-110); HEMOLYSIS < 15 (0-50); Sodium 138 mmol/L (137-145); Total Protein 6.5 g/dL (6.3-8.2)
== END 2021-02-22 09:17 | disposition home or self-care (01) ==
PROVIDERS: Emergency Medicine; Emergency Provider Emergency Medicine; PCP Anesthesiology Pain Medicine
DX: R10.13 Epigastric pain (principal); Z20.822 Contact with and (suspected) exposure to COVID-19
CPT/HCPCS: 36415; 74177; 74181; 76705; 80053; 81003; 83690; 85025; 87635; 96361; 96374; 96375; 96376; 99284; 99285; C9803; J1170; J2405; J2765; Q9967

== ENCOUNTER → 2022-02-17 16:08 | Outpatient (CLI) | payer MEDICARE, OTHER, SELFPAY ==
[2022-02-17 16:44] LABS: Add Manual Diff / Slide Review NO; Basophils Absolute Auto 0 /uL (0-100); Basophils Percent Auto 0.6 % (0-2); Eosinophils Absolute Auto 100 /uL (0-450); Eosinophils Percent Auto 1.3 % (2-4); Hematocrit 40.6 % (36-46); Hemoglobin 14.1 g/dL (12.0-16.0); Lymphocytes Absolute Auto 1800 /uL (1100-4500); Lymphocytes Percent Auto 25.2 % (25-40); Mean Corpuscular HGB Conc 34.6 % (30-36); Mean Corpuscular Hemoglobin 31.1 PG (26-34); Mean Corpuscular Volume 89.9 fL (80-100); Monocytes Absolute Auto 600 /uL (0-900); Neutrophils Absolute Auto 4500 /uL (1500-7000); Neutrophils Percent Auto 64.9 % (50-75); Platelet Count 302 X10^3/uL (150-400); Red Blood Cell Count 4.52 X10^6/uL (4.0-5.2); Red Cell Distribution Width 12.9 % (11.6-14.8)
[2022-02-17 17:23] LABS: Alanine Aminotransferase 116 IU/L (<35); Albumin 4.4 g/dL (3.5-5.0); Albumin Globulin Ratio 1.6 (1.0-2.8); Alkaline Phosphatase 165 U/L (38-126); Aspartate Aminotransferase 85 IU/L (14-36); BUN Creatinine Ratio 26.5 (6-22); Bilirubin Total 0.5 mg/dL (0.2-1.3); Blood Urea Nitrogen 26 mg/dL (7-17); Calcium 9.4 mg/dL (8.4-10.2); Carbon Dioxide 30 mmol/L (22-32); Chloride 99 mmol/L (98-107); Cholesterol 245 mg/dL (140-199); Estimated Glomerular Filt Rate > 60 mL/min (>60); Globulin 2.7 g/dL (1.7-4.1); Glucose 166 mg/dL (80-110); HDL Cholesterol 80 mg/dL (40-60); HEMOLYSIS 25 (0-50); LDL Cholesterol Calculated 126 mg/dL (<100); Potassium 4.9 mmol/L (3.4-5.1); Sodium 137 mmol/L (137-145); Total Protein 7.1 g/dL (6.3-8.2); Triglycerides 195 mg/dL (35-150)
== END ==
PROVIDERS: PCP Anesthesiology Pain Medicine; Referring Provider Anesthesiology Pain Medicine; Visit Provider Anesthesiology Pain Medicine
DX: E13.42 Other specified diabetes mellitus with diabetic polyneuropathy (principal); I15.0 Renovascular hypertension; Z79.891 Long term (current) use of opiate analgesic; K59.04 Chronic idiopathic constipation; Z87.19 Personal history of other diseases of the digestive system
CPT/HCPCS: 36415; 80053; 80061; 84443; 85025

== ENCOUNTER → 2022-11-25 18:27 | Outpatient (CLI) | payer MEDICARE, OTHER, SELFPAY ==
[2022-11-25 19:28] LABS: Influenza A - CEPHEID Flu A POSITIVE (NEGATIVE); Influenza B - CEPHEID Flu B NEGATIVE (NEGATIVE); Respiratory Syncytial Virus Negative (Negative)
[2022-11-25 19:31] LABS: COVID-19 CEPHEID 4-PLEX PCR Negative (Negative)
== END ==
PROVIDERS: PCP Anesthesiology Pain Medicine; Visit Provider Physician Assistant
DX: R05.1 Acute cough (principal); Z20.828 Contact with and (suspected) exposure to other viral communicable diseases
CPT/HCPCS: 0241U

== ENCOUNTER → 2023-01-19 14:23 | Outpatient (CLI) | payer MEDICARE, OTHER, SELFPAY ==
--- NOTE | 2023-01-19 | DI.MG.S_ITS ---
BILATERAL DIGITAL SCREENING MAMMOGRAM 3D/2D WITH CAD: 01/19/2023 CLINICAL: Routine screening. Family history of breast cancer. Comparison is made to exams dated: 11/05/2020 mammogram, 03/28/2016 mammogram, and 03/29/2012 mammogram - [facility]. Both breasts are heterogeneously dense, which may obscure small masses (category c / 51-75% glandular tissue). Current study was also evaluated with a Computer Aided Detection (CAD) system. No significant masses, calcifications, or other findings are seen in either breast. There has been no significant interval change. IMPRESSION: NEGATIVE There is no mammographic evidence of malignancy. A 1 year screening mammogram is recommended. Based on the Tyrer Cuzick model (a risk assessment model) the patient's lifetime risk is 12.2% and her 10 year risk is 7.3%. According to the ACR, ACS, and NCCN guidelines, an annual breast MRI exam along with mammogram is recommended if the patient's lifetime risk is 20% or greater. This exam was interpreted at Station ID: [id number]. NOTE: For mammograms, a report in lay terms will be sent to the patient. Approximately 15% of breast malignancies will not be visualized mammographically. In the management of a palpable breast mass, a negative mammogram must not discourage biopsy of a clinically suspicious lesion. Electronically Signed By: Ryan srinivasan/kurtis:01/19/2023 15:04:57 letter sent: Normal Exam ACR BI-RADS Category 1: Negative [id number]
== END ==
PROVIDERS: PCP Anesthesiology Pain Medicine; Referring Provider Anesthesiology Pain Medicine; Visit Provider Anesthesiology Pain Medicine
DX: Z12.31 Encounter for screening mammogram for malignant neoplasm of breast (principal); Z80.3 Family history of malignant neoplasm of breast
CPT/HCPCS: 77063; 77067